=== PATIENT | male | born 1950 | race Caucasian/White ===

== ENCOUNTER 2022-07-08 12:38 | Emergency (ER) | payer MEDICARE ==
[~2022-07-08] VITALS: Ht 188 cm; Wt 111.1 kg
[~2022-07-08 12:38] MED LIST: BISOPROLOL FUMA10 MG PO; GABAPENTIN300 MG PO; METOPROLOL SUCC25 MG PO; WARFARIN SODIUM5 MG PO
[2022-07-08] MEDS ORDERED: HYDROCODON-ACE1 EA11 PO (14:32)
== END 2022-07-08 15:02 | disposition home or self-care (01) ==
LOC: ED 12:38
DX: S82.102A Unspecified fracture of upper end of left tibia, initial encounter for closed fracture (principal); I10 Essential (primary) hypertension; Z88.0 Allergy status to penicillin; Z79.899 Other long term (current) drug therapy; Z79.01 Long term (current) use of anticoagulants; W18.30XA Fall on same level, unspecified, initial encounter
CPT/HCPCS: 73560; 99283-25

== ENCOUNTER 2022-07-10 14:46 | Inpatient (IN) | payer MEDICARE ==
[~2022-07-10] VITALS: Ht 188 cm; Wt 104.8 kg
[~2022-07-10 14:46] MED LIST changes: +HYDROCODON-ACE1 EA11 PO
--- OUTSIDE RECORDS SUMMARY | 2022-07-10 14:48 | XMS ---
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 Luiz VISIT COUNT (12 MO.) 2 [facility] TOTAL 2 NOTE: Visits indicate total known visits. ED/UCC VISIT TRACKING (12 MO.) 07/10/2022 14:46 [facility]KKI Bermudez OR TYPE: Emergency COMPLAINT: - HEART RATE PROBLEM 07/08/2022 12:39 MIKKI Bermudez OR TYPE: Emergency COMPLAINT: - LEFT KNEE INJ INPATIENT VISIT TRACKING (12 MO.) No inpatient visits to display in this time frame [email or web address]
--- NOTE | 2022-07-10 20:45 | NUR ---
PT ARRIVED TO CCU FROM ED VIA STRETCHER. TRANSFERRED TO BED W/ ASSIST OF 3. PT RECEIVING FIRST OF TWO UNITS OF ORDERED BLOOD UPON ARRIVAL TO UNIT. REPORT RECEIVED FROM AMISH SOLER. PT ORIENTED TO ROOM AND CALL LIGHT SYSTEM. CALL LIGHT WITHIN REACH.
--- NOTE | 2022-07-10 21:30 | NUR ---
SECOND UNIT OF BLOOD IS CURRENTLY INFUSING WITHOUT NOTED ADVERSE REACTION. PT IS COMPLIANT WITH ASSESSMENT AND MEDICATION ADMINISTRATION. PT'S SON, MAX IS AT PT'S BEDSIDE ASSISTING WITH ADMISSION INTAKE QUESTIONS. PRN DILAUDID ADMINISTERED FOR 7/10 LLE PAIN. VSS. WILL CONT TO MONITOR.
--- NOTE | 2022-07-10 22:42 | EKG ---
[facility] [address] [facility] [place], [place] [address] Signed Sinus tachycardia Otherwise normal ECG No previous ECGs available Confirmed by SARAH BARCENAS MD ([id number]) on 07/10/2022 10:42:39 PM Electronically Signed By: SARAH BARCENAS MD 07/10/222241 PATIENT NAME: GOPAL RENE MOHIT Electrocardiogram DATE OF : 54 PHYSICIAN: SARAH BARCENAS MD REPORT #: [id number] REPORT IS CONFIDENTIAL AND NOT TO BE RELEASED WITHOUT AUTHORIZATION
--- NOTE | 2022-07-10 23:40 | NUR ---
BLOOD TRANSFUSION COMPLETE. PT UP TO COMMODE AT BEDSIDE WITH ASSISTANCE. TOLERATING IVF ORDERED. VSS. PT VERBALIZES NEEDS APPROPRIATELY. CALL LIGHT WITHIN REACH. WILL CONT TO MONITOR.
--- NOTE | 2022-07-11 01:00 | NUR ---
PT RESTING IN BED WITH HIS EYES CLOSED- TOLERATING IVF ORDERED. VSS. CALL LIGHT WITHIN REACH; PT USES APPROPRIATELY. NO DISTRESS NOTED. WILL CONT TO MONITOR.
--- NOTE | 2022-07-11 03:00 | NUR ---
PT USED CALL LIGHT TO REQUEST ASSISTANCE WITH GOING TO THE BATHROOM. PT DIDN'T WANT TO TRY TO GET UP TO THE COMMODE AND OPTED FOR A BEDPAN. USES URINAL TO VOID. VSS. CALL LIGHT WITHIN REACH. WILL CONT TO MONITOR.
--- NOTE | 2022-07-11 05:12 | NUR ---
PRN DILAUDID ADMINISTERED FOR 8/10 LLE PAIN. PT REPOSITIONED IN BED. TOLERATING IVF ORDERED. CALL LIGHT WITHIN REACH. VSS. NO DISTRESS NOTED. WILL CONTINUE TO MONITOR.
--- NOTE | 2022-07-11 07:00 | NUR ---
PATIENT FINISHED ON BEDPAN. LARGE DARK LIQUID STOOL .
--- NOTE | 2022-07-11 07:30 | NUR ---
REPORT RECIEVED. RESTING IN BED. LEFT LEG IMMOBILIZER IN PLACE. C/O PAIN IN L LEG. LEFT LEG IS WITH SWELLING AND BRUISED.
--- NOTE | 2022-07-11 08:00 | NUR ---
ASSESSMENT DONE. PATIENT IS TO HAVE HAVE EGD THIS AM. HAS BEEN NOP. C/O LEFT LEG DISCOMFORT. LEFT LEG IS SWOLLEN AND BRUISED. IMMOBILIZER IS IN PLACE. DENIES NAUSEA. NO ACTIVE BLEEDING NOTED. DENIES ABD PAIN. IVF INFUSING.
--- NOTE | 2022-07-11 09:03 | NUR ---
PATIENT RESTING IN BED, WOKE TO VOICE. VITALS AND I&OS CHARTED. CALL LIGHT IN EASY REACH
--- NOTE | 2022-07-11 09:59 | NUR ---
TO OR VIA STRETCHER.
--- NOTE | 2022-07-11 10:40 | NUR ---
RETURN TO CCU. IS AWAKE AND ALERT. REPORT RECIEVED FROM CHANGE DIRECTOR.
--- NOTE | 2022-07-11 12:00 | NUR ---
ASSESSMENT DONE. TAKING BOWEL PREP WELL.
--- NOTE | 2022-07-11 13:20 | NUR ---
DILAUDID 1 MG IV GIVEN FOR LLE PAIN. HAS BEEN TAKING BOWEL PREP WELL.
--- NOTE | 2022-07-11 13:36 | NUR ---
SLEEPING AFTER DILAUDID GIVEN. IVF PATENT. NO FUTHER CHANGES.
--- NOTE | 2022-07-11 13:38 | NUR ---
PT TAKEN TO OR FOR SULRGERY. WILL FOLLOW
--- NOTE | 2022-07-11 15:00 | NUR ---
Spoke with pt and he states he lives in [facility] in a house with 1 step. He recently rx his l leg below the knee. States he has had hip replacement on this side also. "R leg shot also". Pt states his sister and son are at his home setting up a hospital bed with a rope in the ceiling to transfer himself. He has a cane, walker, wc, and hospital bed. He plans on dc to home and sister and son will assist him. I asked if he would consider going to a rehap after his surgery on his left leg and he states, "never". He did have an EGD this am and reports they found, "nothing" so he will have a cscope tomorrow. He is unsure what will happen after this. Let him know I will check in with him again to see if he needs assist with placement or any DME. He feels he has everything he needs at home. He denies financial issues.
--- NOTE | 2022-07-11 15:17 | NUR ---
PATIENT ON BEDPAN AT THIS TIME, TOLERATING WELL.
--- NOTE | 2022-07-11 15:30 | NUR ---
ON BED WONG.
--- NOTE | 2022-07-11 16:00 | NUR ---
HAD LARGE MELENA STOOL. ASSESSMENT DONE. DENIES NEED FOR PAIN MEDICATION AT THIS TIME. TAKING CLEAR LIQUIDS. IS COOPERATIVE. NO S/S OF ETOH WITHDRAWAL. IVF PATENT.
--- NOTE | 2022-07-11 17:00 | NUR ---
INCONT OF EXTRA LARGE MELENA STOOL, OVERHEAD LIFT USED TO TRANSFER PATIENT TO COMMODE. TOLERATED WELL. THIS PROCESS OF TRANSFER AND CLEANING TOOK APPROX 45 MIN.
--- NOTE | 2022-07-11 19:00 | NUR ---
INCONT OF MELENA STOOL. ATTENDS CHANGED. NO FUTHER CHANGES. REPORT TO [employer] APPRAISER.
--- NOTE | 2022-07-11 20:00 | NUR ---
PT A/O, RESPIRATIONS COARSE THROUGHOUT, EVEN AND REGULAR. ASSESSMENT COMPLETED. PT RATES PAIN 4/10 TO LLE. DILAUDID ADMINSTERED. CALL LIGHT WITHIN REACH.
--- NOTE | 2022-07-11 22:38 | NUR ---
ROUNDED ON PT. PT APPEARS TO BE SLEEPING COMFORTABLY. IV FLUIDS RUNNING. CALL LIGHT WITHIN REACH.
--- NOTE | 2022-07-12 | NUR ---
PT ASSESSMENT COMPLETED. PT HAD BM AND URINARY INCONTINENCE X1. PT DOES WELL WITH BED MOBILITY. CALL LIGHT WITHIN REACH.
--- NOTE | 2022-07-12 02:19 | NUR ---
ROUNDED ON PT. PT IS A/O, RESPIRATIONS EVEN AND REGULAR. IV FLUIDS RUNNING. DENIES NEEDS/COMPLAINTS ATT. C
--- NOTE | 2022-07-12 03:40 | NUR ---
PT ASSESSMENT COMPLETED. PT HAD X1 VOID AND X1 BM. PRN INHALER ADMINISTERED. RATES PAIN 7/10. PAIN MEDICATION ADMINISTERED. IV FLUIDS RUNNING. CALL LIGHT WITHIN REACH.
--- NOTE | 2022-07-12 05:57 | NUR ---
ROUNDED ON PT. PT IS A/O, RESPIRATIONS EVEN AND REGULAR. IV FLUIDS RUNNING. DENIES NEEDS/COMPLAINTS ATT. CALL LIGHT WITHIN REACH.
--- NOTE | 2022-07-12 07:30 | NUR ---
REPORT RECIEVED. SLEEPING IN BED, IVF PATENT. RESP EQUAL AND NO LABORED.
--- NOTE | 2022-07-12 07:31 | NUR ---
REPORT RECIEVED. PATIENT IS SLEEPING. NO DISTRESS NOTED. IVF PATENT.
--- NOTE | 2022-07-12 08:00 | NUR ---
ASSESSMENT COMPLETE. C/O FEELING RESTLESS AND PAINFUL. WILL GIVE DILAUDID FOR PAIN. LEG IMMOBLIZER INTACT. LEFT LEG REMAINS SWOLLEN AND BRUISED. FOOT WARM. HAS GOOD SENSATION.
--- NOTE | 2022-07-12 09:50 | NUR ---
TO OR VIA STRETCHER. LR ON STRAIGHT TUBING INFUSING.
--- NOTE | 2022-07-12 10:31 | NUR ---
PER AM MEETING POSSIBLE TRANSFER TO MED/SURG TODAY. NO CHANGES IN DISCHARGE PLAN AT THIS TIME.
--- NOTE | 2022-07-12 11:30 | NUR ---
RETURN TO ROOM 127 POST COLONOSCOPY. IS AWAKE AND ALERT. C/O INCREASED PAIN IN LEFT LEG WITH MOVEMENT. VSS. NO BLEEDING NOTED.
--- NOTE | 2022-07-12 12:00 | NUR ---
DR. PRITCHARD HERE TO SEE PATIENT. ORDERS RECIEVED TO TRANSFER TO MED-SURG. MONITOR DC'D. IVF INFUSING AT 75 ML/HR. PATIENT IS TAKING WATER W/O PROBLEMS. LLE REMAINS IN PLACE.
--- NOTE | 2022-07-12 12:40 | NUR ---
OXYCODONE 10 MG PO GIVEN FOR C/O LLE PAIN. SITTING WITH HOB ELEVATED. DENIES SHORTNESS OF BREATH.
--- NOTE | 2022-07-12 13:00 | NUR ---
NO CHANGES. TOOK PO KCL 40 MEQ W/O PROBLEMS. IS TO HAVE CT OF ABD THIS AFTERNOON. FRIEND IS IN ROOM.
--- NOTE | 2022-07-12 15:15 | PATH ---
[facility] [address] [place], [place] [address] Signed SPECIMEN(S): A DUODENAL NODULE BIOPSY SPECIMEN(S): B STOMACH BODY BIOPSY SPECIMEN SOURCE: A. DUODENAL NODULE BIOPSY B. STOMACH BODY BIOPSY CLINICAL HISTORY: Acute GI bleed, blood loss anemia. Post: Duodenitis. FINAL PATHOLOGIC DIAGNOSIS: A. Duodenal nodule biopsy: - Benign duodenal mucosa with focal Refugio's gland hyperplasia. - Slight partial villous effacement, negative for increased epithelial lymphocytes. B. Stomach body biopsy: - Benign gastric-type mucosa with focal slight chronic inflammation. - Negative for evidence of helicobacter organisms on routine HE stained sections. JVR:[facility]:C2NR MICROSCOPIC EXAMINATION: Histologic sections of all submitted blocks are examined by light microscopy. These findings, together with the gross examination, support the pathologic diagnosis. GROSS DESCRIPTION: Two specimens are received in two containers, labeled "BQ." A. The specimen, labeled "BQ, duodenal nodule biopsy," is received in formalin and consists of one montgomery soft tissue fragment that measures 0.3 cm in greatest dimension. The specimen is entirely submitted in cassette (A1). B. The specimen, labeled "BQ, stomach body biopsies," is received in formalin and consists of four montgomery soft tissue fragments that measure 0.1-0.3 cm in greatest dimension. The specimen is entirely submitted in cassette (B1). VB (under the direct supervision of a pathologist) The Gross Description was prepared using a voice recognition system. The report was reviewed for accuracy; however, sound-alike word errors, addition and/or deletions may occur. If there is any question about this report, please contact Client Services. PATIENT NAME: GOPAL RENE PATHOLOGY DATE OF : 54 REPORT #: [id number] PHYSICIAN: JOSSIE COLUNGA PCP: LUIS CARLOS PRITCHARD MD REPORT IS CONFIDENTIAL AND NOT TO BE RELEASED WITHOUT AUTHORIZATION [facility] [address] [facility] [place], [place] [address] Signed PERFORMING LABORATORY: The technical component was performed by [email or web address], [address] [place] [id number] (CLIA# [id number]). Professional interpretation was performed by [facility] - [address] [address] (CLIA#: [id number]). Diagnostician: Peyman Gaffney MD Pathologist Electronically Signed 07/12/2022 Copies: ~ PATIENT NAME: GOPAL RENE PATHOLOGY DATE OF : 54 REPORT #: [id number] PHYSICIAN: JOSSIE COLUNGA PCP: LUIS CARLOS PRITCHARD MD REPORT IS CONFIDENTIAL AND NOT TO BE RELEASED WITHOUT AUTHORIZATION
--- NOTE | 2022-07-12 15:35 | NUR ---
TAKING ORAL CONTRAST. WILL HAVE CT OF ABD TODAY AT 1600. DENIES NAUSEA OR PAIN.
--- NOTE | 2022-07-12 16:25 | NUR ---
PT TRANSFERED TO ROOM [address] VSS. PT DENIES NEEDS AT THIS TIME. ORIENTED TO CALL LIGHT, WITHIN REACH.
[2022-07-12] MEDS ORDERED: NORVASC5 MG PO (17:20)
[2022-07-12] MEDS ORDERED: LIPITOR20 MG PO (17:21)
[2022-07-12] MEDS ORDERED: OXYCODONE HCL5 MG PO (17:22)
--- NOTE | 2022-07-12 18:23 | NUR ---
MED REC COMPLETE
--- NOTE | 2022-07-12 19:05 | NUR ---
RECEIVED REPORT FROM LEILANI WELLINGTON. PT RESTING IN BED W/EYES CLOSED, RESPIRATIONS ARE EVEN AND UNLABORED, NO SIGNS OF DISTRESS. IV FLUIDS INFUSING DIRECTED. CALL LIGHT WITHIN REACH.
--- NOTE | 2022-07-12 22:31 | NUR ---
IN PT ROOM FOR ASSESSMENT, VS, I/O'S. PT REQUESTED TO SIT AT EDGE OF BED. ASSISTED PT TO SITTING AT EDGE OF BED, TOLERATED WELL, SAFETY MAINTAINED, PT REPORTS NO DIZZINESS OR INCREASED PAIN AT THIS TIME. BRACE CURRENTLY ON LEFT LEG D/T TIBIAL FRACTURE, SWELLING PRESENT FROM KNEE DOWN WITH BRUSING AROUND KNEE. PULSES THROUGHOUT, WEAKER IN PEDAL. SKIN IS PINK/WARM/DRY, PT IS ABLE TO MOVE SELF IN BED USING TRAPEZE BAR ABOVE HEAD, NO SIGNS OF SKIN BREAKDOWN AT THIS TIME. LUNGS ARE TIGHT THROUGHOUT WITH WHEEZES HEARD ON RUL & RLL, OCCASIONAL, NONPRODUCTIVE COUGH. PRN OXY GIVEN FOR 5/10 PAIN IN LFT LEG AND LOWER BACK. PT NOW RESTING BACK IN BED, CALL LIGHT WITHIN REACH, NO FURTHER NEEDS AT THIS TIME. IV FLUIDS RUNNING DIRECTED.
--- NOTE | 2022-07-12 23:30 | NUR ---
PT RESTING W/EYES CLOSED. RESPIRATIONS ARE EVEN AND UNLABORED, NO SIGNS OF DISTRESS. CALL LIGHT WITHIN REACH.
--- NOTE | 2022-07-13 01:10 | NUR ---
PT RESTING W/EYES CLOSED. RESPIRATIONS ARE EVEN AND UNLABORED, NO SIGNS OF DISTRESS. CALL LIGHT WITHIN REACH. IV FLUIDS INFUSING DIRECTED.
--- NOTE | 2022-07-13 02:15 | NUR ---
IN PT ROOM FOR VS, I/O'S, AND ASSESSMENT. PT RESTING W/EYES CLOSED BUT AWAKENS TO VOICE. ORIENTED TO ALL BUT DATE. NO ACUTE CHANGES FROM PREVIOUS ASSESSMENT. LFT LEG IN IMMOBILIZER, SWOLLEN W/2+ EDEMA AND BRUISING AROUND KNEE. PT STATES NO PAIN AT THIS TIME, STATES DOES NOT REQUIRE PRN PAIN MEDS AT THIS TIME. PT STATES NO NAUSEA, DIZZINESS, N/T, OR SOB AT THIS TIME. CALL LIGHT WITHIN REACH, NO FURTHER NEEDS AT THIS TIME. VSS.
--- NOTE | 2022-07-13 03:05 | NUR ---
PT RESTING W/EYES CLOSED. RESPIRATIONS ARE EVEN AND UNLABORED, NO SIGNS OF DISTRESS. CALL LIGHT WITHIN REACH.
--- NOTE | 2022-07-13 05:50 | NUR ---
IN PT ROOM FOR NEUROLOGY TECHNOLOGIST. PT ALERT AND WATCHING TV AT THIS TIME. PT STATES HIS STOMACH HURTS, NO NAUSEA AT THIS TIME. SCHEDULED PROTONIX GIVEN AND PRN OXY (SEE EMAR). PT STOMACH IS MODERATELY DISTENDED, BOWEL TONES ACTIVE X4, AND INCREASED IN FIRMNESS. CALL LIGHT WITHIN REACH, NO FURTHER NEEDS AT THIS TIME.
--- NOTE | 2022-07-13 08:12 | NUR ---
MORNING ASSESSMENT COMPLETE. PT SITTING HIGH FOWLERS IN BED WATCHING TV. PT STATES PAIN IS TOLERABLE AT THIS TIME. ABD MODERATELY DISTENDED, FIRM. PT DOES NOT COMPLAIN OF NAUSEA AT THIS TIME. STATES HE FEELS ABD PRESSURE AND BLOATING. HYPOACTIVE BOWEL TONES THROUGHOUT. PT DENIES PASSING GAS IN [address] CHILEL, NO NEW ORDERS. DISCUSSED PLAN OF CARE WITH PATIENT, INFORMED OF PT/OT EVALUATION. PT VERBALIZED UNDERSTANDING. DENIES FURTHER NEEDS AT THIS TIME. CALL LIGHT IN REACH.
--- NOTE | 2022-07-13 09:19 | NUR ---
pt in bed. vitals and is and os complete. pt still req to sit on bed haddad. no further needs. call light within reach.
--- NOTE | 2022-07-13 13:34 | NUR ---
PT REPORTS HE WAS ABLE TO PASS SOME GAS AND STOOL AND IS NEEDING A LINEN CHANGE. PT'S LINENS CHANGED WITH A DEPENDS PLACED. WARM BLANKETS PROVIDED. PT SITTING UP IN BED WITH CALL LIGHT IN HAND. PT PASSED APPROXIMATELY 50 ML OF GELANTINOUS STOOL.
--- NOTE | 2022-07-13 19:43 | NUR ---
REPORT RECEIVED FROM DAY SHIFT RN. PT LYING IN BED ALERT AND ORIENTED. DENIES NEEDS. WHITE BOARD UPDATED. CALL LIGHT IN REACH.
--- NOTE | 2022-07-13 21:21 | NUR ---
EVENING ASSESSMENT COMPLETE. SCHEDULED MEDS ADMIN PER EMAR. PT REPORTS LLE/ABD PAIN 12/05. PRN FOR PAIN ADMIN PER EMAR. LLE WITH IMMOBILIZER IN PLACE. ELEVATED ON PILLOW. CMS INTACT. EDEMA AND BRUISING NOTED. ABD FIRM AND DISTENDED. BOWEL TONES ACITVE. PT REPORTS FLATUS. DENIES NAUSEA. PT DENIES QUESTIONS OR CONCERNS. CALL LIGHT IN REACH.
--- NOTE | 2022-07-14 00:10 | NUR ---
PT RESTING IN BED WITH EYES CLOSED. RESPIRATIONS EVEN. CALL LIGHT IN REACH.
--- NOTE | 2022-07-14 01:33 | NUR ---
CALL LIGHT ANSWERED. PT REPORTS LLE PAIN 01/05. PRN FOR PAIN ADMIN PER EMAR. SCHEDULED MEDS ADMIN. ASSITED TO REPOSITION. LLE ELEVATED ON PILLOWS. NO FURTHER NEEDS. CALL LIGHT IN REACH.
--- NOTE | 2022-07-14 03:00 | NUR ---
IN TO CHANGE THERMOSTAT FOR PT
--- NOTE | 2022-07-14 05:08 | NUR ---
PT IN BED. VITALS AND IS AND OS COMPLETE. NO FURTHER NEEDS. CALL LIGHT WITHIN REACH
--- NOTE | 2022-07-14 06:26 | NUR ---
SCHEDULED MEDS ADMIN. PT REPORTS LLE PAIN 5/10. PRN FOR PAIN ADMIN PER EMAR. ASSISTED PT TO REPOSITION IN BED. LLE ELEVATED ON TWO PILLOWS. NO FURTHER NEEDS.
--- NOTE | 2022-07-14 08:15 | NUR ---
PT CALL LIGHT ANSWERED. PT REQ WATER. WATER GIVEN TO PT. PT URINAL EMPTIED. SCDS PUT ON AGAIN. NO FURTHER NEEDS. CALL LIGHT WITHIN REACH
--- NOTE | 2022-07-14 08:50 | NUR ---
MORNING ASSESSMENT COMPLETE. PT SITTING UPRIGHT IN BED EATING BREAKFAST. PT REPORTS SMALL AMOUNT OF EMESIS APPROX 15 MINUTES PRIOR, EMESIS ON GOWN YELLOW/GREEN IN COLOR. PT DENIES NAUSEA AT THIS TIME, ABLE TO COMPLETE 90% OF MEAL. GOWN CHANGED. ABD DISTENDED AND FIRM, ACTIVE BOWEL TONES HEARD THROUGOUT. PT REPORTS PASSING GAS DURING THE NIGHT. PT STATES PAIN IT 3/10 IN LEFT LEG, TOLERABLE AT THIS TIME, 2+ PITTING EDEMA NOTED TO LLE, CMS INTACT. CALL LIGHT IN REACH. DENIES FURTHER NEEDS AT THIS TIME.
--- NOTE | 2022-07-14 10:27 | NUR ---
IN PT ROOM. PT IN CHAIR. SCD MACHINE IS GOING OFF. SCD MACHINE FIXED. LINEN CHANGED. NO FURTHER NEEDS. URINAL PUT IN REACH. CALL LIGHT WITHIN REACH
--- NOTE | 2022-07-14 11:39 | NUR ---
SISTER TOOK ALL THE PATIENTS BELONGINGS HOME WITH HER.
--- NOTE | 2022-07-14 11:45 | NUR ---
PT ASSISTED FROM CHAIR TO BED, PIVOT TRANSFER WITH 1 PERSON ASSIST. PT TOLERATED WELL. DENIES NEEDS AT THIS TIME.
--- NOTE | 2022-07-14 13:28 | NUR ---
pt in bed. vitals and is and os complete. pt had not had any urine output for the last 4 hours. i asked pt to try to use the urinal. pt tried. urine output was deficent so rn was notified. no further needs call light within reach
--- NOTE | 2022-07-14 14:10 | NUR ---
INFORMED BY DIRECTOR PERSONAL PT OUTPUT SINCE 1000 WAS 10ML. BLADDER SCAN VOLUME 490. PT URINATED 150 DARK YELLOW URINE. POST VOID RESIDUAL 397. SPOKE WITH DR PRITCHARD, NO NEW ORDERS RECEIVED. WILL MONITOR INTAKE AND URINE OUTPUT.
--- NOTE | 2022-07-14 17:36 | NUR ---
PT LYING AWAKE IN BED, C/O 5/10 LEG AND ABD PAIN. GIVEN PRN OXYCODONE, SEE EMAR. DENIES FURTHER NEEDS AT THIS TIME. CALL LIGHT IN REACH.
--- NOTE | 2022-07-14 19:41 | NUR ---
REPORT RECEIVED FROM DAY SHIFT RN. PT LYING IN BED ALERT AND ORIENTED. REPORTS LLE/ABD PAIN 01/05. PRN FOR PAIN ADMIN WITH SIPS OF WATER. PT DENIES NAUSEA. NO FURTHER NEEDS AT THIS TIME. CALL LIGHT IN REACH. WHITE BOARD UPDATED.
--- NOTE | 2022-07-14 20:30 | NUR ---
NOTIFIED BY MANAGER LIFE INSURANCE PT HAD APPROX [address] PRITCHARD ON THE FLOOR AND PROVIDED UPDATES. NEW ORDERS RECEIVED.
--- NOTE | 2022-07-14 20:58 | NUR ---
IV STARTED ON LFA, 1 ATTEMPT 20G FLUSHED WELL. NO OTHER NEEDS. CALL LIGHT IN REACH.
--- NOTE | 2022-07-14 21:45 | NUR ---
16F NGT PLACED PER ORDER IN RIGHT NARE WITH IMMEDIATE RETURN OF 850 ML BROWN DRAINAGE. SECUREMENT DEVICE IN PLACE. EDUCATION PROVIDED, PT RECEPTIVE. DAVID WELL. PRN FOR LLE PAIN ADMIN PER EMAR. BRACE TO LLE IN PLACE. ELEVATED ON 2 PILLOWS. 2+ EDEMA AND BRUISING NOTED. CMS INTACT. IVF INFUSING PER ORDER. PT NPO. ORAL SWABS PROVIDED. NO FURTHER NEEDS. CALL LIGHT IN REACH.
--- NOTE | 2022-07-15 01:18 | NUR ---
PT RESTING IN BED WITH EYES CLOSED. HOB ELEVATED 30 DEGREES. NGT WITH BROWN DRAINAGE. LLE ELEVATED ON PILLOWS.
--- NOTE | 2022-07-15 02:45 | NUR ---
PT ABLE TO VOID APPROX 75 ML. UP TO SIDE OF BED TO ATTEMPT TO VOID MORE. PT UNABLE, REPORTS HE HAS NO URGE TO VOID. BACK TO BED. BLADDER SCANNED FOR [address] PRITCHARD NOTIFIED. NEW TELEPHONE ORDERS RECEIVED VERIFIED WITH READ BACK METHOD.
--- NOTE | 2022-07-15 04:28 | NUR ---
ORDERS TO PLACE CORNEJO CATH RECEIVED. PT WITH HX OF HYPOSPADIAS. THIS THIRD RAIL INSTALLER AND PHARMACY SERVICE ASSOCIATE IN TO ASSESS FOR CORNEJO PLACEMENT. MD NOTIFIED THIS THIRD RAIL INSTALLER UNABLE TO PLACE CORNEJO DUE TO ANATOMY. DR. PRITCHARD TO FLOOR TO PLACE 12F CORNEJO CATH FOLLOWING STERILE PROCEDURE WITH RETURN OF 700 ML CONCENTRATED URINE. BALOON FILLED WITH 10 ML. PT DAVID WELL.
--- NOTE | 2022-07-15 07:11 | NUR ---
REPORT RECEIVED FROM ARIEL WELLINGTON, ALL QUESTIONS ANSWERED.
--- NOTE | 2022-07-15 08:34 | NUR ---
MORNING ASSESSMENT COMPLETE. PT LYING IN BED WITH EYES CLOSED, AWAKENS EASILY. NG TUBE IN PLACE TO LIWS, YELLOW/ORANGE THICK DRAINAGE. CORNEJO CATHETER DRAINING CLEAR YELLOW URINE. PT LEFT LEG ELEVATED ON [address] BRUISING AND 2+ PITTING EDEMA NOTED TO LEFT LEG. PT STATES PAIN IS TOLERABLE AT 3/10 AT THIS TIME. PT INITALLY CONFUSED, THOUGH AFTER A FEW MINUTES ABLE TO ANSWER ORIENTATION QUESTIONS CORRECTLY. PT STATES HE FEELS CONFUSED AT TIMES. IV FLUIDS RUNNING AT 175. SCD IN PLACE TO RLE. PT DENIES FURTHER NEEDS AT THIS TIME. CALL LIGHT IN REACH.
--- NOTE | 2022-07-15 10:20 | NUR ---
PT RESTING WITH EYES CLOSED, RESPIRATIONS EVEN AND UNLABORED. CALL LIGHT IN REACH.
--- NOTE | 2022-07-15 11:06 | NUR ---
PT UP TO CHAIR WITH PT. PT STATES PAIN REMAINS TOLERABLE AT THIS TIME. NG TO LIWS CONTINUES TO DRAIN YELLOW/ORANGE FLUID. CORNEJO DRAINING CLEAR YELLOW URINE. PT ALERT AND OREINTED. DENIES FURTHER NEEDS AT THIS TIME. CALL LIGHT IN REACH.
--- NOTE | 2022-07-15 14:12 | NUR ---
IN PT ROOM. VITALS COMPLETE. RN IN ROOM AND WILL COMPLETE IS AND OS. NO FURTHER NEEDS. CALL LIGHT WITHIN REACH
--- NOTE | 2022-07-15 14:15 | NUR ---
SPOKE WITH DR PRITCHARD REGARDING LOW URINE OUTPUT, 100MLS SINCE 1000AM. ORDER FOR 1L LR BOLUS PLACED.
--- NOTE | 2022-07-15 15:24 | NUR ---
FLUID BOLUS COMPLETE, MAINTENANCE FLUIDS RUNNING. NG TO LIWS CONTINUES WITH YELLOW/BROWN FLUID. CORNEJO DRAINING DARK YELLOW URINE. PT DENIES NEEDS AT THIS TIME, STATES PAIN IS TOLERABLE. CALL LIGHT IN REACH. BED ALARM ON.
--- NOTE | 2022-07-15 15:40 | NUR ---
NG ADVANCED 5CM PER ABD XRAY. AWARE. LIWS DRAINGING YELLOW/BROWN CONTENTS. PT TOLERATED WELL. NG MARKED AT NARE.
--- NOTE | 2022-07-15 16:52 | NUR ---
PT SITTING UP AWAKE IN BED WATCHING TV. STATES PAIN IS TOLERABLE AT THIS TIME. CALL LIGHT IN REACH. BED ALARM ON.
--- NOTE | 2022-07-15 19:22 | NUR ---
REPORT RECEIVED FROM DAY SHIFT RN. PT LYING IN BED RESTING WITH EYES CLOSED. RESPIRATIONS EVEN. CALL LIGHT IN REACH. WHITE BOARD UPDATED.
--- NOTE | 2022-07-15 21:17 | NUR ---
IN ROOM FOR INCOME TAX ADMINISTRATOR. PT AWAKE IN BED. FOUND TO BE DISORIENTED TO ALL AND UNABLE TO FOLLOW COMMANDS. VS WNL. BLOOD SUGAR 92. NO OBVIOUS SIGNS OR SYMPTOMS OF ETOH WITHDRAWAL. BEFAST NEGATIVE. DR. PRITCHARD NOTIFIED OF CHANGE IN PT CONDITION AND ON FLOOR TO ASSESS PT.
--- NOTE | 2022-07-15 22:11 | NUR ---
REPORT GIVEN TO CCU RN. PT TRANSFERRED VIA BED TO ROOM 127 WITH ALL PERSONAL BELONGINGS. PT ALERT AND ORIENTED X 3. REPORTS PASSING FLATUS DURING TX.
--- NOTE | 2022-07-15 22:15 | NUR ---
PT ARRIVES TO CCU VIA BED BY SKATE MAKER. PT ALERT AND OREINTED, APPEARS SOMEWHAT FORGETFUL RELATED TO DISEASE PROCESS AND INTERVENTIONS. NG TUBE CONNECTED TO LIS, GREEN BILE DRAINING. PT STATES HE PASSED GAS FEW MINUTES AGO, DENIES NAUSEA. FURTHER EDUCATION DONE ON WHY HE CANT EAT. CMS INTACT ON LEFT LOWER LEG, IN BRACE, PT STATES COMFORTABLE. REPOSISTIONS SELF USING TRAPEZE. IV BOLUS STARTED ON MS REMAINS INFUSING. PT ORIENTED TO ROOM AND CALL LIGHT, BED ALARM ON.
--- NOTE | 2022-07-15 23:33 | NUR ---
PT SITTING UP IN BED WATCHING TV - HARSH WET COUGH NOTED OCCASIONALLY. BED SIDE TABLE IN REACH.
--- NOTE | 2022-07-16 | NUR ---
RN IN ROOM TO FIND PT ATTEMPTING TO TAKE GOWN OFF - ABLE TO ANSWER ALL ORIENTATION QUESTIONS CLEARLY BUT EXPERIENCING EXPRESIVE APHASIA WHEN ASKED "WHAT IS WRONG". BEFAST/MINI NEURO EXAM NEGATIVE. ENGINE REPAIRER PRODUCTION IN ROOM TO ALSO ASSESS - PT CLEARS QUICKLY. PT CONFUSED ABOUT REASON FOR HOSPITALIZATION WHICH IN TURN IS LEADING TO ANXIETY. PT DENIES NEEDS HOWEVER. WILL CONTINUE TO MONITOR.
--- NOTE | 2022-07-16 00:31 | NUR ---
PRN HOME INHALER PROVIDED FOR PT FOR COMPLAINTS OF SOB. SPO2 94% ON ROOM AIR. LUNG SOUNDS UNREMARKABLE.
--- NOTE | 2022-07-16 01:30 | NUR ---
PT RESTING IN BED WITH HOB ELEVATED - RR EVEN AND UNLABORED. STILL OCCASIONAL COUGH THAT PRODUCES A MOAN.
--- NOTE | 2022-07-16 02:11 | NUR ---
PT ASSISTED WITH REPOSISTIONING TO RIGHT SIDE PER PT REQUEST.
--- NOTE | 2022-07-16 04:00 | NUR ---
ASSESSMENT COMPLETE - PT WAKES EASILY WITH NAME AND IS ORIENTED X3. DENIES PAIN, CONTINUAL COUGH HOUWEVER LUNG SOUNDS ARE CLEAR/DIM. LEFT LEG REMAINS IN IMMOBILIZER AND ELEVATED ON PILLOWS, CMS INTACT. CORNEJO DRAINING SMALL AMOUNTS OF CONC URINE. ABD FIRM WITH HYPOACTIVE BOWEL TONES. PT ENCOURAGED SELF REPOSISTIONING USING TRAPAEZE. IVF REMAIN AT RATE OF 200ML/HR. NG TO LIS, MINIMAL GREEN DRAINAGE. CALL LIGHT AT SIDE.
--- NOTE | 2022-07-16 05:05 | NUR ---
PT ASSISTED UP TO CHAIR PIVOT TRANSFER NON WEIGHT BEARING ON LEFT LEG. PT OREINTED AND APPEARS TO BE CLEARING MENTALLY. NG OUTPUT 1200ML OF YELLOW/GREEN BILE. URINE OUT PUT REMAINS LOW - 25ML/HR. PT DENIES COMPLAINTS - CONTINUED EDUCATION ON DISEASE PROCESS PROVIDED.
--- NOTE | 2022-07-16 07:30 | NUR ---
REPORT RECIEVED. PATIENT IS SITTNG IN CHAIR, NGT PATENT, CORNEJO CATH PATENT, IVF INFUSING. RESTING.
--- NOTE | 2022-07-16 08:00 | NUR ---
PATIENT AWAKE IN RECLINER. VITALS AND I&OS CHARTED. NG IN PLACE AND WORKING PROPERLY. CORNEJO EMPTIED AND CHARTED. CALL LIGHT AND PERSONAL ITEMS IN EASY REACH. PATIENT HAS NO OTHER NEEDS AT THIS TIME.
--- NOTE | 2022-07-16 09:30 | NUR ---
PASSING LIQUID STOOL. BACK TO BED WITH ASSIST OF TWO STAFF. LINENS CHANGED. ATTENDS PLACED. LEFT LEG IMMOBOLIZER IN PALCE. LEFT LEG REMAINS SWOLLEN AND BRUISED. C/O INCREASED LEG PAIN WITH MOVEMENT. DENIES NAUSEA. MINIMAL U/O. WILL CONTINUE TO MONITOR U/O.
--- NOTE | 2022-07-16 10:30 | NUR ---
PHOS RIDER RAJANI, WILL ALSO RECIEVE MAG RIDER.
--- NOTE | 2022-07-16 11:00 | NUR ---
OOB TO CHAIR. PATIENT IS COOPERATIVE. IS ALERT AND ORIENTED. ENC TO USE I.S.
--- NOTE | 2022-07-16 12:00 | NUR ---
ASSESSMENT UNCHANGED. REMAINS IN CHAIR. O2 AT [address]
--- NOTE | 2022-07-16 13:15 | NUR ---
SEVERAL FAMILY MEMBERS ARE IN ROOM. EXPLAINED TO FAMILY PATIENTS ILLNESS, AND CURRENT MEDICAL PLAN.
--- NOTE | 2022-07-16 13:40 | NUR ---
BACK TO BED WITH TOTAL ASSIST. INCONT OF LIQUID STOOL. INCREASE PAIN IN LEG WITH MOVEMENT. NO PAIN MEDICATION GIVEN.
--- NOTE | 2022-07-16 14:17 | NUR ---
RESTING IN BED. NGT PATENT.
--- NOTE | 2022-07-16 19:30 | NUR ---
REPORT RECEIVED FROM DAY RN - PT RESTING IN BED WITH HOB ELEVATED WATCHING TV. CALL LIGHT AT SIDE.
--- NOTE | 2022-07-16 20:34 | NUR ---
ASSESSMENT COMPLETE - PT AWAKE IN BED BUT EXPRESSES HES READY FOR SLEEP. NG TUBE ON LIS, DRAINING YELLOW/GREEN COPIOUS AMOUNT. PT PROVIDED SMALL AMOUNT OF ICE CHIPS FOR COMFORT. DENIES NEED FOR PAIN MEDICATION. ORIENTED AND CARRYING CONVERSATION APPROPIRATLY. MOIST COUGH REMAINS - LUNGS CLEAR. CALL LIGHT IN REACH.
--- NOTE | 2022-07-16 21:20 | NUR ---
PT RESTING IN BED WITH HOB ELEVATED AT 30 DEGREES, EYES CLOSED. RR EVEN AND UNLABORED. CALL LIGHT AT SIDE, HR 80'S RESTING.
--- NOTE | 2022-07-16 23:05 | NUR ---
LARGE MUCUS/GREEN LIQUID BM PRODUCED IN ATTENDS, CHANGED AND CORNEJO CARE DONE. PT ENCOURAGED TO CALL AND USE COMMODE FOR INFECTION PURPOSES. NG CANISTER EMPTIED FOR 1000ML OUT. CORNEJO 90ML OUT. PT DENIES FURTHER NEEDS. CALL LIGHT AT SIDE.
--- NOTE | 2022-07-17 00:53 | NUR ---
Pt resting in bed with eyes closed, hob elevated at 30degrees. RR even and unlabored, call light in reach.
--- NOTE | 2022-07-17 01:40 | NUR ---
PT REMAINS ASLEEP IN BED, RR EVEN AND UNLABORED. ASSESSMENT DEFERED AT THIS TIME TO ALLOW REST. CALL LIGHT AT SIDE.
--- NOTE | 2022-07-17 03:05 | NUR ---
PT USES CALL LIGHT TO REPORT HE HAD BM IN ATTENDS. PT CLEANED AND NEW ATTENDS PLACED. STOOL CONTINUES TO BE MUCOUS AND LOOSE. SKIN BARRIER CREAM APPLIED TO BOTTOM TO PREVENT BREAKDOWN. PT ASSISTS WITH ROLLING USING TRAPEZE. LEFT LEG ELEVATED ON PILLOWS. NG TUBE CONTINUES TO DRAIN LARGE AMOUNT OF YELLOW/GREEN BILE. NG NOSE ADHESIVE REPLACED. CALL LIGHT IN REACH.
--- NOTE | 2022-07-17 04:53 | NUR ---
PT RESTING IN BED WITH EYES CLOSED, RR EVEN AND UNLABORED. VS ON MONITOR WNL. CALL LIGHT AT SIDE.
--- NOTE | 2022-07-17 05:12 | NUR ---
PT USES CALL LIGHT TO REQUEST PAIN MEDICATION FOR 6/10 PAIN IN BACK AND LEG. PRN MORPHINE ADMINISTERED AND REPOSISTIONED. LUNGS REMAIN CLEAR BUT DIM, DEEP BREATHING INITIATES COUGH WHICH PT AVOIDS, EDUCATION PROVIDED ON THIS. PT DENIES FURTHER NEEDS, CALL LIGHT IN REACH.
--- NOTE | 2022-07-17 06:25 | NUR ---
pt resting in bed with eyes closed, wakes easily with sound. ng tube canister emptied, very foul smell noted - total of 2000ml out this shift.
--- NOTE | 2022-07-17 09:26 | NUR ---
Spoke with Jesús. States he cont. to plan to dc to home when he is cleared medically. States he has stopped drinking and smoking with this admission. I accepted a [employer] card and will consider calling them. Does not want me to call at this time.
--- NOTE | 2022-07-17 10:20 | NUR ---
OOB TO COMMODE TO EXPELL 750 ML OF LIQUID STOOL. TWO STAFF NEEDED FOR TRANSFER. STAYED ON COMMODE FOR APPROX 20 MIN. WHILE ON COMMODE, AM CARES GIVEN. TOELRATED WELL. DENIES SHORTNESS OF BREATH. DENIES PAIN.
--- NOTE | 2022-07-17 11:36 | NUR ---
ASSESSMENT DONE. SITTING UP IN BED WATCHING TV. NGT TO LIS. CORNEJO CATH PATENT. IVF INFUSING AT 200 ML/HR. LEFT LEG IMMOBILIZER ON. CMS TO LLE INTACT. DENIES NEED FOR PAIN MEDICATION.
--- NOTE | 2022-07-17 13:30 | NUR ---
FAMILY MEMBERS ARE IN ROOM. PATIENT IS HAVING A MEETING ON PHONE. TOLERATING CONVERSATION WELL.
--- NOTE | 2022-07-17 14:53 | NUR ---
PT SLEEPING, AMISH PATEL REQUESTED I NOT DISTURB PT AT THIS TIME. WILL FOLLOW
--- NOTE | 2022-07-17 15:00 | NUR ---
IVF HUNG ORDERED.
--- NOTE | 2022-07-17 15:09 | PATH ---
[facility] [address] [facility] [place], [place] [address] Signed SPECIMEN(S): A CECUM POLYP SPECIMEN(S): B ASCENDING/RIGHT COLON POLYP SPECIMEN(S): C TRANSVERSE COLON POLYP SPECIMEN(S): D CECUM BIOPSY MASS SPECIMEN(S): E DESCENDING/LEFT COLON POLYP AT 95 CM SPECIMEN(S): F SIGMOID COLON POLYP AT 70 CM SPECIMEN(S): G SIGMOID COLON POLYP AT 60 CM SPECIMEN(S): H COLON POLYP AT 30 CM SPECIMEN(S): I COLON POLYP AT 20 CM SPECIMEN(S): J COLON POLYP AT 25 CM SPECIMEN(S): K RECTAL POLYP SPECIMEN SOURCE: A. CECUM POLYP B. ASCENDING/RIGHT COLON POLYP C. TRANSVERSE COLON POLYP D. CECUM BIOPSY MASS E. DESCENDING/LEFT COLON POLYP AT 95 CM F. SIGMOID COLON POLYP AT 70 CM G. SIGMOID COLON POLYP AT 60 CM H. COLON POLYP AT 30 CM I. COLON POLYP AT 20 CM J. COLON POLYP AT 25 CM K. RECTAL POLYP CLINICAL HISTORY: GI bleed. Postop diagnosis: Multiple polyps FINAL PATHOLOGIC DIAGNOSIS: A. Cecum polyp: - Tubular adenoma (four fragments). B. Ascending / right colon polyp: - Tubular adenoma. C. Transverse colon polyp: - Tubular adenoma (one fragment). D. Cecum biopsy mass: - Polypoid fragments of colonic mucosa with features focally suggestive of serrated polyp / adenoma. - Negative for evidence of malignancy on these sections. E. Descending / left colon polyp at 95 cm: - Tubular adenoma (multiple fragments). PATIENT NAME: GOPAL RENE PATHOLOGY DATE OF : 54 REPORT #: [id number] PHYSICIAN: JOSSIE COLUNGA PCP: LUIS CARLOS PRITCHARD MD REPORT IS CONFIDENTIAL AND NOT TO BE RELEASED WITHOUT AUTHORIZATION [facility] [address] [place], [place] [address] Signed F. Sigmoid colon polyp at 70 cm: - Tubular adenoma (five fragments). G. Sigmoid colon polyp at 60 cm: - Tubular adenoma (three fragments). H. Colon polyp at 30 cm: - Tubular adenoma. I. Colon polyp at 20 cm: - Tubular adenoma with focal high grade dysplasia. - Negative for unequivocal invasive carcinoma. - High grade dysplasia appears free of the polyp stalk margin on these sections. J. Colon polyp at 25 cm: - Tubular adenoma. K. Rectal polyp: - Tubular adenoma (multiple fragments). JVR:[id number] MICROSCOPIC EXAMINATION: Histologic sections of all submitted blocks are examined by light microscopy. These findings, together with the gross examination, support the pathologic diagnosis. GROSS DESCRIPTION: A. The specimen, labeled and designated "GermanclaudiaiberHenrique," and designated on the requisition "cecum polyp," is received in formalin and consists of five montgomery soft tissue fragments that measure in 0.2 to 0.4 greatest dimension. The specimens are entirely submitted in (A1). B. The specimen, labeled and designated "Henrique Rene," and designated on the requisition "ascending/right colon polyp," is received in formalin and consists of one montgomery soft tissue fragment that is 0.7 cm in greatest dimension. The specimen is inked, bisected, and entirely submitted in (B1). C. The specimen, labeled and designated "MaurisioiberHenrique," and designated on the requisition "transverse colon polyp," is received in formalin and consists of two montgomery soft tissue fragments that measure 0.3 and 0.5 cm in greatest dimension. The specimen is entirely submitted in (C1). D. The specimen, labeled and designated "Henrique Rene," and designated on the requisition "cecum biopsy mass," is received in formalin and consists of four montgomery soft tissue fragments that measure 0.2 to 0.4 cm in greatest dimension. The specimen is entirely submitted in PATIENT NAME: GOPAL RENE PATHOLOGY DATE OF : 54 REPORT #: [id number] PHYSICIAN: JOSSIE COLUNGA PCP: LUIS CARLOS PRITCHARD MD REPORT IS CONFIDENTIAL AND NOT TO BE RELEASED WITHOUT AUTHORIZATION [facility] [address], [place] [address] Signed (D1). E. The specimen, labeled and designated "Lemuel Henrique," and designated on the requisition "descending/left colon polyp at 95 cm," is received in formalin and consists of four montgomery soft tissue fragments that measure 0.2 to 0.4 cm in greatest dimension. The specimen is entirely submitted in (E1). F. The specimen, labeled and designated "Stefanjordanlizzy Henrique," and designated on the requisition "sigmoid colon polyp at 70 cm," is received in formalin and consists of two montgomery soft tissue fragments that measure 0.6 and 0.6 cm in greatest dimension. Each tissue fragment is arbitrarily inked and bisected. The specimen is entirely submitted in (F1). G. The specimen, labeled and designated "Quittschreiber, B," and designated on the requisition "sigmoid colon polyp at 60 cm," is received in formalin and consists of three montgomery soft tissue fragments that measure 0.3 to 0.5 cm in greatest dimension. The specimen is entirely submitted in (G1). H. The specimen, labeled and designated "Quittschreiber, B," and designated on the requisition "colon polyp at 30 cm," is received in formalin and consists of one montgomery soft tissue fragment that is 1.0 x 0.9 x 0.9 cm. The specimen is inked, sectioned, and entirely submitted in (H1). I. The specimen, labeled and designated "Quittschreiber, B," and designated on the requisition "colon polyp at 20 cm," is received in formalin and consists of one montgomery soft tissue fragment that is 1.4 cm in greatest dimension. The specimen is inked, sectioned, and entirely submitted in (I1). J. The specimen, labeled and designated "Quittschreiber, B," and designated on the requisition "colon polyp at 25 cm," is received in formalin and consists of two white and montgomery soft tissue fragments that measure 0.3 and 0.6 cm in greatest dimension. The larger tissue fragment is inked and bisected. The specimen is entirely submitted in (J1). K. The specimen, labeled and designated "Nunochreiber, B," and designated on the requisition "rectal polyp," is received in formalin and consists of five montgomery soft tissue fragments that measure 0.4 to 0.8 cm in greatest dimension. One tissue fragment is inked and bisected. The specimen is entirely submitted in (K1). FB (under the direct supervision of a pathologist) The Gross Description was prepared using a voice recognition system. The report was reviewed for accuracy; however, sound-alike word errors, addition and/or deletions may occur. If there is any PATIENT NAME: GOPAL RENE PATHOLOGY DATE OF : 54 REPORT #: [id number] PHYSICIAN: JOSSIE COLUNGA PCP: LUIS CARLOS PRITCHARD MD REPORT IS CONFIDENTIAL AND NOT TO BE RELEASED WITHOUT AUTHORIZATION [address] [place], [place] [address] Signed question about this report, please contact Client Services. PERFORMING LABORATORY: The technical component was performed by [facility], [address] [place] [address] (CLIA# [id number]). Professional interpretation was performed by [facility], [address] [place] [id number] (CLIA#: [id number]). Diagnostician: Peyman Gaffney MD Pathologist Electronically Signed 07/17/2022 Copies: ~ PATIENT NAME: GOPAL RENE PATHOLOGY DATE OF : 54 REPORT #: [id number] PHYSICIAN: [facility] PCP: LUIS CARLOS PRITCHARD MD REPORT IS CONFIDENTIAL AND NOT TO BE RELEASED WITHOUT AUTHORIZATION
--- NOTE | 2022-07-17 15:27 | NUR ---
AWAKE, DENIES PAIN. NO CHIANGES.
--- NOTE | 2022-07-17 16:15 | NUR ---
DR. CHILEL HERE TO SEE PATIENT. ORDERS RECIEVED FOR KUB.
--- NOTE | 2022-07-17 19:13 | NUR ---
DR. ROSARIO NOTIFIED OF RESULTS OF KUB. REPORT TO NEXT SHIFT.
--- NOTE | 2022-07-17 19:50 | NUR ---
PT SITTING UP IN BED ON PHONE - APPROPRIATE CONVERSATION AND ORIENTATION. RT IN ROOM TO ADMINISTER HEMANT FAROOQ.
--- NOTE | 2022-07-17 20:39 | NUR ---
Just got up and used commode, will re-take within the hour per RN.
--- NOTE | 2022-07-17 21:10 | NUR ---
ASSESSMENT COMPLETE - COARSE LUNG SOUNDS WITH OCCASIONAL COUGH, PT APPRECIATES NEB TX. ORIENTED THIS EVENING WITH IMPROVED CONVERSATION SPEECH. ENCOURAGED SLEEP - PT DENIES NEED FOR PAIN MEDICATION AT THIS TIME. NG TUBE SECURE AND AT LIS - REMAINS TO DRAIN COPIOUS AMOUNT OF GREEN OUTPUT. CALL LIGHT AT SIDE. VS WNL.
--- NOTE | 2022-07-17 21:52 | NUR ---
Assisted patient to bedside commode with two person assist. One person assist back to bed. Positioned in bed with two pillows under right leg. Call light within reach.
--- NOTE | 2022-07-17 22:43 | NUR ---
PT RESTING IN BED WITH EYES CLOSED - RR EVEN AND UNLABORED. HOB AT 50 DEGREES. CALL LIGHT AT SIDE, VS WNL.
--- NOTE | 2022-07-17 23:30 | NUR ---
PT RESTING IN BED, WAKES EASILY WITH SOUND/TOUCH. IV SITE WNL - LR INSFUSING AT 200ML/H. PT NG TUBE REMAINS PATENT , ASSESSMENT UNCHANGED FROM EARLIER ASSESSMENT. CALL LIGHT AT SIDE, PT DENIES NEEDS AT THIS TIME.
--- NOTE | 2022-07-18 00:10 | NUR ---
Did vitals, emptied nowak and a warm blacket.
--- NOTE | 2022-07-18 01:52 | NUR ---
PT RESTING IN BED WITH HOB ELEVATED, EYE CLOSED RR EVEN AND UNLABORED. CALL LIGHT AT SIDE. VS WNL.
--- NOTE | 2022-07-18 02:18 | NUR ---
RN IN ROOM TO ANSWER CALL LIGHT - PT REQUESTS PAIN MEDICATION, PRN MORPHINE ADMINISTERED FOR 6/10 L LEG AND BACK PAIN. PT REPOSISTIONED. NG TUBE RESECURED USING NOSE ADHESIVE. PT DENIES FURTHER NEEDS. CALL LIGHT IN REACH.
--- NOTE | 2022-07-18 04:00 | NUR ---
ASSESSMENT COMPLETE, UNCHANGED - PT ASLEEP UPON ENERING ROOM BUT WAKES EASILY WITH SOUND. VS WNL. PT DENIES NEEDS AT THIS TIME.
--- NOTE | 2022-07-18 06:41 | NUR ---
PT RESTING IN BED WITH EYES CLOSED. CALL LIGHT AT SIDE.
--- NOTE | 2022-07-18 08:02 | NUR ---
PT CARE ASSUMED. PT RESTING IN BED WATCHING TV. REPORTS PAIN IS MUCH IMPROVED. PT STATES HE JUST RECEIVED BREATHING TREATMENT AND IS FEELING MUCH BETTER. LOOSE COUGH. MORNING MEDS GIVEN
--- NOTE | 2022-07-18 08:40 | NUR ---
No change in plan for case management.
--- NOTE | 2022-07-18 09:02 | NUR ---
PATIENT RESTING IN BED, VITALS AND I&OS CHARTED. CORNEJO EMPTIED. CALL LIGHT IN REACH
--- NOTE | 2022-07-18 09:23 | NUR ---
PT REPORTS PAIN REMAINS LOW AT 2-3/10. FLUIDS HANGING. DENIES NEEDS
--- NOTE | 2022-07-18 10:42 | NUR ---
PT RESTING, APPEARS TO BE SLEEPING. RESPS EVEN AND UNLABORED. IV INFUSING
--- NOTE | 2022-07-18 11:53 | NUR ---
PT REPOSTITIONED IN BED. SWELLING TO LEFT LOWER EXTREMITY REMAINS THE SAME. SIGNIFICANT BRUISING. PT REPORTS PAIN AT 5/10, MEDICATED WITH MORPHINE AND ZOFRAN. DR ROSARIO IN TO SEE PT
--- NOTE | 2022-07-18 13:47 | NUR ---
NO CHANGE IN PT ASSESSMENT. REPORTS NO PAIN AT THIS TIME.
--- NOTE | 2022-07-18 13:57 | NUR ---
REPORT GIVEN TO [facility]J [facility] FOR MED SURG TRANSFER
--- NOTE | 2022-07-18 14:11 | NUR ---
PT ALERT, ORIENTED AND SITTING IN BED WITH NGT IN USE.PT SAYS HE FEELS MUCH BETTER, NOT HAPPY WITH NGT. GAVE ENCOURAGEMENT, SAID HE IS WANTING TO QUIT SMOKING AND DRINKING. LIVES ALONE AND HAS SEEN THINGS DIFFERENTLY NOW. GAVE PT A G.POST, REQUESTED PRAYER AND PT GAVE PERMISSION TO SHARE WITH RN ABOUT CESSATION HELP. MENTIONED TO DEBBI ALVES, WILL FOLLOW
--- NOTE | 2022-07-18 14:31 | NUR ---
PATIENT TO THE MEDICAL FLOOR, ALERT AND ORIENTED X4. PATIENT'S VITAL SIGNS STABLE, AFEBRILE. PATIENT HOOKED TO LIWS, NG INTACT TO RIGHT ORANGE COLORED GASTRIC CONTENT NOTED. PATIENT DENIES NAUSEA AND OR PAIN. IV SITE PATENT, FLUIDS INFUSING PER PROVIDER ORDER. PATIENT ORIENTED TO ROOM AND CALL LIGHT. NO CURRENT NEEDS, PERSONAL SUPPLIES AND CALL LIGHT WITHIN REACH.
--- NOTE | 2022-07-18 16:09 | NUR ---
VERBAL ORDER OBTAINED FROM DR. CHILEL TO START LR @ 85ML/HR CONTINUOUS AFTER CURRENT BAG OF FLUID IS DONE.
--- NOTE | 2022-07-18 16:53 | OR ---
[facility] [address] [place], [place] [address] Signed DATE OF OPERATION: 07/11/2022 SURGEON: Mary Chilel MD PREOPERATIVE DIAGNOSES: 1. Dark red rectal bleeding. 2. Epigastric pain. 3. Chronic alcohol abuse. POSTOPERATIVE DIAGNOSES: 1. Duodenitis with mild nodularity and without ulceration. 2. Mild chronic gastritis. PROCEDURE: Esophagogastroduodenoscopy with biopsy. ANESTHESIA: Intravenous sedation propofol infusion; Mary Nair CRNA. INDICATIONS: This 72-year-old white man is a patient of Dr. Pritchard, recently suffering a fall related to alcohol use and causing fracture to his left tibia. He is seen by Dr. Meeks. He presented to the emergency room yesterday, having a syncopal episode in the parking lot of Dr. Meeks who performed a short segment of CPR on him. He was found to have a fair amount of dark red black stool and was transported to the intensive care unit for further management for presumed GI bleed. He had no associated hematemesis. Notably, he also was chronically anticoagulated with Coumadin for history of DVT and pulmonary embolism. He has been reversed on his anticoagulant with Kcentra and vitamin K. His hematocrit posttransfusion was noted to be 33.1. He has had no hematemesis since hospitalization, but has passed some dark stool. He is admitted to undergo upper endoscopy at this time to assess for an upper gastrointestinal source of bleeding. The risks of bleeding, infection, and perforation were reviewed with me, understands and wished to proceed. Findings he was maintained in the supine position for endoscopy on the basis of his leg and splint. Findings showed chronic gastritis and subacute duodenitis with mild nodularity for which biopsies were obtained. CLOtest was negative. There was no lesion on the esophagus, stomach, or duodenum that would account for actual anemia, however. DESCRIPTION OF PROCEDURE: The patient was brought to the endoscopy suite and placed in the semirecumbent position. Electronically Signed By: MARY CHILEL MD 07/18/22 1653 PATIENT NAME: GOPAL RENE OPERATIVE REPORT DATE OF : 54 REPORT #: [id number] PHYSICIAN: MARY CHILEL MD PCP: LUIS CARLOS PRITCHARD MD REPORT IS CONFIDENTIAL AND NOT TO BE RELEASED WITHOUT AUTHORIZATION [facility] [address] [place], [place] [address] Signed Body position changed to left lateral was not feasible given his splint from his left tibia fracture. He was given intravenous sedation with full cardiopulmonary monitoring. A bite block was placed. An Olympus video upper endoscope was passed in the hypopharynx. The vocal cords and surrounding soft tissue were normal. The scope was advanced down the esophagus, which was essentially normal. There was no evidence of varices, ulceration, bleeding, or Sonia-Tarango tear. The scope was advanced to the stomach, which was insufflated with air. There was mild chronic gastritis but no sign of ulcer or neoplasm. The pylorus was normal. Scope was passed through it into the duodenum. Second and third portions were reasonably normal. The bulbar portion had duodenitis and some inflammatory nodularity. Margin Analyst nodule was biopsied. The scope was withdrawn. A biopsy was then taken of stomach for both NOLBERTO and pathologic testing. Retroflexed view was undertaken showing a reasonably good flap valve. The scope was withdrawn. The distal esophagus was examined and found to have no sign of pathology to account for anemia. The patient was taken to recovery room in good condition. CONCLUDING DIAGNOSIS: No source on upper endoscopy that would account for bleeding to the level he has had. PLAN: We will initiate bowel prep and anticipate colonoscopy likely tomorrow. MD ROSE Mendieta/DEANNAL /[id number] cc: Dr. Jose Enrique Mohr MD Copies: SARAH MOHR MD ~ Electronically Signed By: MARY CHILEL MD 07/18/22 1653 PATIENT NAME: GOPAL RENE OPERATIVE REPORT DATE OF : 54 REPORT #: [id number] PHYSICIAN: MARY CHILEL MD PCP: LUIS CARLOS PRITCHARD MD REPORT IS CONFIDENTIAL AND NOT TO BE RELEASED WITHOUT AUTHORIZATION
--- NOTE | 2022-07-18 16:53 | OR ---
[facility] [address], [place] [address] Signed DATE OF OPERATION: 07/12/2022 SURGEON: Mary Chilel MD PREOPERATIVE DIAGNOSES: 1. Hematochezia. 2. Anemia. 3. Chronic anticoagulation. 4. Upper endoscopy on 07/11/2022, negative for bleeding source. POSTOPERATIVE DIAGNOSIS: Multiple polyps; questionable ulcerated lesion of cecum. PROCEDURES: 1. Total colonoscopy to cecum with biopsy of possible ulcerated cecal lesion and polypectomy x15. 2. Tattoo of the cecum. ANESTHESIA: Intravenous sedation; propofol infusion, Long Ledezma CRNA INDICATIONS: This 72-year-old white male was admitted on 07/10/[address] Mohr. His primary care provider is Dr. Pritchard. The patient was admitted with anemia and hematochezia. Upper endoscopy was performed yesterday showing no lesion to account for the bleeding. He did have duodenitis, however. The patient has family history of colon cancer in his mother. He has never had colonoscopy in the past. The patient has significant and severe alcoholism as well. 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 He is admitted after undergoing bowel prep yesterday for colonoscopy today to better characterize the source of his hematochezia. The risks of bleeding, infection, perforation, anesthetic complications, so forth were all reviewed with him. He understand and wished to proceed. FINDINGS: The prep was impressively good overall. Complete colonoscopy was undertaken to the cecum. Full intubation of the cecum was accomplished. He had polyps scattered throughout the colon, some of them on the rather large side. The cecum had a questionable ulcerated lesion behind the ileocecal valve, though this was not entirely certain. The area was marked with Endo magdalena tattoo. It was also biopsied. It did not have the typical characteristic appearance of a cecal carcinoma, particularly but there Electronically Signed By: MARY CHILEL MD 07/18/22 8542 PATIENT NAME: GOPAL RENE OPERATIVE REPORT DATE OF : 54 REPORT #: [id number] PHYSICIAN: MARY CHILLE MD PCP: LUIS CARLOS PRITCHARD MD REPORT IS CONFIDENTIAL AND NOT TO BE RELEASED WITHOUT AUTHORIZATION [facility] [address], [place] [address] Signed is some suspicion for that actually. The CT scan might be beneficial at this point, pending pathology report. The remaining colon had very bleeds variable sized variably sized polyps throughout all of them many excised. Admittedly, there were some remaining very small polyps that were not excised. DESCRIPTION OF PROCEDURE: The patient was brought to the endoscopy suite and placed in lateral decubitus position. Preoperative antibiotic Ancef was given as he does have hip replacement history. He was given intravenous sedation with propofol infusional technique by the trailer rental clerk with full cardiopulmonary monitoring. He was then positioned to the left side down, mindful of his splint from a recent tibial fracture. Digital rectal examination was found to be normal. An Olympus video colonoscope was passed into the rectum and manipulated throughout the colon, ultimately intubating the cecum. Irrigation was undertaken. There were small adenomatous appearing polyps of the cecum. Two were excised with hot snare technique. The scope was withdrawn and examination throughout showed several polyps in the ascending colon and transverse colon. These were excised with hot snare polypectomy technique and passed for pathology. The scope was once again reintroduced as far as possible to the cecum, where thorough evaluation and intubation of the cecum was undertaken seeking to intubate the ileum itself. The ileum could not be well visualized, but there did appear to be firmness and possibly ulcerated cecal mass, though this was not as certain as usual. Multiple biopsies were taken there, however. Further efforts to intubate the ileum were not successful. The orifice never really fully seen. The scope was then withdrawn back to the level of the transverse colon and further withdrawal undertaken. Multiple polyps were seen including three polyps at 95 cm, excised with hot snare technique, two at 77 cm, two at 60 cm, one at 30 cm, another 25 cm, another 20 cm, and ultimately on retroflexed view, a low rectal polyp also excised with hot snare technique. In aggregate, 15 polyps were excised in total. We are mindful there remained some very small polyps that were not addressed today. The patient was taken to the recovery room in good condition, taken to the Intensive Care Unit following that. CONCLUDING DIAGNOSIS: Multiple polyps. Uncertain if any were actually causing anemia or bleeding. The cecal lesion is of uncertain origin and may simply be the residual ileocecal valve mucosa itself. A CT scan may help differentiate whether there is in fact was a cecal neoplasm. Electronically Signed By: MARY CHILEL MD 07/18/22 9102 PATIENT NAME: GOPAL RENE OPERATIVE REPORT DATE OF : 54 REPORT #: [id number] PHYSICIAN: MARY CHILEL MD PCP: LUIS CARLOS PRITCHARD MD REPORT IS CONFIDENTIAL AND NOT TO BE RELEASED WITHOUT AUTHORIZATION [address] [place], [place] [address] Signed MD ROSE Mendieta/DEANNAL /[id number] cc: MD Ariana Grimm MD Copies: LUIS CARLOS PRITCHARD MD, CYNTHIA MD ~ Electronically Signed By: MARY CHILEL MD 07/18/22 1653 PATIENT NAME: ANJUGOPAL LEE OPERATIVE REPORT DATE OF : 54 REPORT #: [id number] PHYSICIAN: MAYR CHILEL MD PCP: LUIS CARLOS PRITCHARD MD REPORT IS CONFIDENTIAL AND NOT TO BE RELEASED WITHOUT AUTHORIZATION
--- NOTE | 2022-07-18 17:29 | NUR ---
PT IN BED. VITALS AND IS AND OS COMPLETE. NO NEEDS AT THIS TIME. CALL LIGHT WITHIN REACH
--- NOTE | 2022-07-18 19:21 | NUR ---
BEDSIDE REPORT DONE. PATIENT RESTING BACK IN BED NOTED 3+ EDEMA TO LLE, KNEE IMMOBILIZER IN PLACE. PATIENT REQUESTING ICE FOR SWELLING. NG IN PLACE AT INTERMITTENT SUCTION. NO OTHER NEEDS AT THIS TIME. RATES PAIN 3/10 ON PAIN SCALE AND REPORTS TOLERABLE.
--- NOTE | 2022-07-18 20:26 | NUR ---
FULL BODY ASSESMENT DONE. PROVIDED ICE PACKS FOR LEFT LOWER EXTREMITY, REPOSITIONED PILLOW TO LAY VERTICAL SUPORTING KNEE SPACE POSTERIORALLY, FLOATING HILLS. SECOND K RIDER INFUSING. ADMINISTERED HS MEDICATIONS PER SEP. PATIENT REPORTS PAIN 0/10 ON PAIN SCALE. NG OUTPUT 50 MLS. GOOD URINE OUTPUT, URINE APPEARS DARK YELLOW. NO OTHER NEEDS AT THIS TIME. RT IN ROOM PROVIDING BREATHING TREATMENT, NOTED EXPIRATORY WHEEZE.
--- NOTE | 2022-07-18 21:32 | NUR ---
PHONE CALL FROM NANCY HERNANDEZ RESULTS NOT BACK FOR REVIEW. CALLED IMAGING, ZEKE WILL PUSH THROUGH STAT. UPDATED.
--- NOTE | 2022-07-18 22:21 | NUR ---
FULL BODY ASSESSMENT DONE. NOTED 3 PLUS EDEMA IN LEFT LOWER EXTREMITY, PROVIDED ICE. ELVATED ON PILLOW. ADMINISTERED HS MEDICAITONS PER SEP. K RIDER INFUSING. PATIENT NG CONNECTED TO INTERMITTENT SUCTION. CORNEJO DRAINING COCENTRATED URINE. PROVIDED ICE CHIPS. BOWEL TONES HYPOACTIVE IN ALL FOUR QUADRANTS. NO OTHER NEEDS AT THIS TIME.
--- NOTE | 2022-07-19 00:16 | NUR ---
PHONE CALL TO DR. VALADEZ, CONCERNS WITH LEFT LOWER EXTREMITY, APPEARS TO HAVE INCREASED SWELLING AND HOT TO TOUCH. PEDAL PULSE FAINT WITH DOPPLER. NEW SWELLING TO LEFT FOOT 4+ PITTING EDEMA. NEW ORDER FOR LAXIX IV 20 MG, AND TO STOP MAINTENANCE FLUIDS. UPDATED PATIENT ON POC, VERBALIZED UNDERSTANDING.
--- NOTE | 2022-07-19 01:21 | NUR ---
PATIENT CONTINUES TO RATE PAIN 5/10 ON PAIN SCALE, BUT VERBALIZES PAIN IS TOLERABLE AFTER ADMINISTRATION OF IV MORPHINE. ABLE TO PLACE TWO MORE PILLOWS UNDER IMMOBILIZED LEG, AND READJUSTED KNEE IMMOBILIZER, NOTED HAD SLID DISTALLY. PATIENT PULLING AT CORNEJO CATHETER, STATES "IT HURTS" REASSURED PATIENT THAT PULLING ON THE CORNEJO TUBE INCREASE IRRITATION AND SHOULD LEAVE ALONE, NOTED SWELLING TO MEATUS. PLANCED PILLOW CASE AROUND AREA FOR COMOFORT. PROVIDED FRESH ICE BAGS TO LEFT KNEE. NG TUBE DISCONNECTED FROM PATIENT RESTLESS IN BED, HOOKED BACK UP 300 ML OUTPUT NOTED RIGHT AWAY. IV LASIX APPEAR EFFECTIVE, URINE NOW APPEARS CLEAR YELLOW. PATIENT RESTING BACK IN BED, BREATHING REGULAR AND EVEN. APPEARS CALM. CALL LIGHT IN PLACE. UPDATED PATIENT ON POC. NO OTHER NEEDS AT THIST TIME.
--- NOTE | 2022-07-19 02:16 | NUR ---
pt SLEEPING, AWAKENS TO VOICE. VSS. SCHEDULED MEDICATION ADMINISTERED. pt RATES PAIN 5/10 IN LEFT LEG "BETTER". VFP APPLIED LLE, AND SCD TO RIGHT LEG. NGT TO LOW INT SUCTION IN PLACE. CALL LIGHT IN REACH. pt DENIES ANY NEEDS AT THIS TIME.
--- NOTE | 2022-07-19 04:25 | NUR ---
ROUNDING ON PATIENT, NOTED MOVED LEGS OFF PILLOWS FOR ELEVATION. AWOKE PATIENT AND REPOSITIONED ON TWO PILLOWS LAYING VERTICAL. PEDAL PULSE STRONG, EDEMA DECREASED TO 2+, LEFT LEG APPEARS SIGNIFICANTLY LESS SWOLLEN, ALONG WITH DECREASED SWELLING TO GENITELIA. PATIENT RATES PAIN 7/10 AND APPEARS TO BE GRIMACING, REQUESTING MORPHINE IV. STATES " PLEASE WATER IT DOWN SO IT DOESN'T MAKE ME GOOFY" REASSURED PATIENT WOULD DILUTE WITH NS.
--- NOTE | 2022-07-19 04:40 | NUR ---
ADMINISTERED IV MORPHINE DILUTED IN 10 ML OF NS, PUSHED OVER 2 MINUTES, PATIENT STATED "I LIKE IT DONE THAT WAY, THEN I DON'T GET GOOFY" PATIENT RESTING BACK IN BED, EYES CLOSED. RR 20, CHEST RISE EVEN AND REGULAR. BED ALARM ON.
--- NOTE | 2022-07-19 06:30 | NUR ---
DR. CHILEL INTO ROOM, IV FLUIDS RESTARTED AT LR @ 85ML/HR. DISCUSSED PATIENTS INCREASED EDEMA TO EXTREMITIES AND GENITAL AREA. DR. CHILEL VERBALIZED AND DEMONSTRATED THE NEED TO MANUALLY PUSH THE FLUID OUT THE FORESKIN TISSUE TO DECREASE RISK OF NECROSIS. DR. CHILEL ALSO VERBALIZED WOULD BE CHANGING THE PATIENT PAIN MEDICATIONS AND DISCONTINUING THE MORPHINE SECONDARY TO THE RISK OF SLOWING GUT ACTIVITY.
--- NOTE | 2022-07-19 08:32 | CONS ---
[facility] [address], [place] [address] Signed DATE OF CONSULTATION: 07/10/2022 REQUESTING PHYSICIAN: Dr. Mohr. PROBLEM: Blood loss anemia related to rectal bleeding. HISTORY OF PRESENT ILLNESS: This 72-year-old white male has likely a chronic alcoholic. He lives in [place], [place]. He was evaluated at [facility] three days ago with a proximal tibia fracture. He was evaluated and treated by Dr. Meeks. His fracture was related to a ground level fall, which upon close discussion was likely associated with excessive alcohol intake. The patient is chronically anticoagulated with Coumadin on the basis of a deep venous thrombosis and subsequent pulmonary embolism (recurrent in the distant past. He was seen Dr. Meeks in followup today with a splint on his left leg when he had a syncopal episode in the parking lot. He was given a brief amount of CPR under the direction of Dr. Meeks and was transported by emergency medical service to the hospital. He was noted to have a systolic pressure of 118 with a pulse of 100. [place] Coma Scale of 15. The patient was evaluated thoroughly and underwent reversal of anticoagulation with vitamin K and other agents (Kcentra). He was noted to have an INR greater than 4. Chest x-ray was performed, which was normal. His initial hemoglobin was 11.6, subsequently lower. Transfusion therapy was initiated. The patient has had no associated hematemesis. He does describe some upper abdominal and epigastric pain. He also describes a family history of colon cancer in his mother; the patient himself has never had colonoscopy or other colon evaluation that he knows. He has been found to have a creatinine of 1.23. He describes his primary physician as "Dr. Orellana" from [place] four years ago. I have no recollection of the provider of that name in this area four years ago. He is quite certain that the provider was in the [place] area, however. He was evaluated in the emergency room and admitted by Dr. Mohr to the intensive care unit for further evaluation. Since admission, he has had no further rectal bleeding. He characterizes the bleeding as "dark red;" his son accompanies him, describes it as dark as well. He affirms there has been no hematemesis. He denies any prior history of ulcer. Electronically Signed By: MARY CHILEL MD 07/19/22 0832 PATIENT NAME: GOPAL RENE CONSULTATION DATE OF : 54 REPORT #: [id number] PHYSICIAN: MARY CHILEL MD PCP: LUIS CARLOS PRITCHARD MD REPORT IS CONFIDENTIAL AND NOT TO BE RELEASED WITHOUT AUTHORIZATION [facility] [address], [place] [address] Signed SURGICAL HISTORY: Does include neck fusion several levels. He has also had left hip surgery. MEDICAL PROBLEMS: Include hypertension and history of deep venous thrombosis with pulmonary embolism with chronic anticoagulation. The patient does use alcohol on a daily basis, four beers daily as well as two hard drinks . SOCIAL HISTORY: He is no longer . He has grown children. He lives in [facility] in [place]. 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 ALLERGIES: He has allergy to penicillin. REVIEW OF SYSTEMS: He denies any dysphagia or hematemesis. Has no focal abdominal pain currently, though has had some epigastric pain from [id number]. PHYSICAL EXAMINATION: GENERAL: Large white man, who is alert and oriented. Does not look systemically toxic. VITAL SIGNS: He is 6 feet 2 inches tall, 111 kg, BMI 31.5. HEENT: Trachea is midline. He has no hoarseness. There is no cervical adenopathy. CHEST: Clear. HEART: Regular. ABDOMEN: Soft and nondistended. There is no focal mass or tenderness. He has no ascites. EXTREMITIES: Show no clubbing, cyanosis, or edema. He has a splint on his left leg related to his left tibial fracture. LABORATORY STUDIES: Show a creatinine 1.23 and INR initially 4.32. White count initially of 10, hematocrit 33.3, and platelets of 209,000. ASSESSMENT: The patient has had blood loss enough to show hematochezia and low hematocrit. He has a very high risk for a more proximal source of his bleeding specifically, ulceration, gastritis, or even neoplasm. I would recommend upper endoscopy be performed tomorrow. If it is negative, then consideration will be made for colonoscopy. He is at increased with a colonic source of problem as well. Given his family history of colon cancer and his previous history of no colonic evaluation. The risks of bleeding, infection, and perforation related to upper endoscopy was reviewed with him. He understands and wished to proceed. Electronically Signed By: MARY CHILEL MD 07/19/22 0832 PATIENT NAME: GOPAL RENE CONSULTATION DATE OF : 54 REPORT #: [id number] PHYSICIAN: MARY CHILEL MD PCP: LUIS CARLOS PRITCHARD MD REPORT IS CONFIDENTIAL AND NOT TO BE RELEASED WITHOUT AUTHORIZATION [address] [address] Signed MD ROSE Mendieta/MODL /[id number] cc: MD Ariana Sifuentes MD Copies: YOSEF MEEKS MD, CYNTHIA MD ~ Electronically Signed By: MARY CHILEL MD 07/19/22 0832 PATIENT NAME: MANOJDEANGOPAL CONSULTATION DATE OF : 54 REPORT #: [id number] PHYSICIAN: MARY CHILEL MD PCP: LUIS CARLOS PRITCHARD MD REPORT IS CONFIDENTIAL AND NOT TO BE RELEASED WITHOUT AUTHORIZATION
--- NOTE | 2022-07-19 09:15 | NUR ---
REPORT RECIEVED FROM NIGHT RN AND PT CARE RESUMED. PT. IS DROWSY BUT AWAKENS EASILY TO VOICE. ORIENTED TO ALL. REPORTS 5/10 RLE PAIN BUT REFUSES PAIN MEDS. IMMOBILIZER REMOVED PER ORDER. PT. ASSISTED WITH REPOSITIONING. ASSESSMENT COMPLETED. IMAGING IN FOR SBFT STUDY AND NG CLAMPED AFTER PROCEDURE. WILL CONTINUE TO MONITOR.
--- NOTE | 2022-07-19 13:05 | NUR ---
PT. C/O SOB AND O2 SAT WAS 93% ON RA. POSITIONED HIGH FOWLERS. HE IS COUGHING UP YELLOW THICK LIQUID. LUNGS COARSE THROUGHOUT WITH WHEEZING. MD UPDATED AND ORDER GIVEN TO CONNECT BACK TO INT. WALL SUCTION. WITHIN 15 CANISTER FULL AND CHANGED. PT. ASSISTED WITH REPOSITIONING. DENIES FURTHER NEEDS. CALL LIGHT IN REACH.
--- NOTE | 2022-07-19 14:30 | NUR ---
STAFF HAD JUST BEEN IN WITH PT-SAID HE WAS EXHAUSTED. NGT IN USE. REQUESTED I COME BACK ANOTHER TIME. GAVE BLESSING AND WILL FOLLOW
--- NOTE | 2022-07-19 16:20 | NUR ---
PT. ASSISTED WITH POSITIONING FOR XRAY. HE REPORTS PAIN IS TOLERABLE AT THIS TIME. PRODUCTIVE COUGH AND O2 SAT IS 94% RA. FAMILY IN THE ROOM AND HAS LOTS OF QUESTIONS. REQUEST TO SPEAK WITH . MD AZUL. WILL CONTINUE TO MONITOR.
--- NOTE | 2022-07-19 18:07 | NUR ---
ROUNDING ON PT. HE C/O CHILLS. TEMP CHECKED AND WAS 101.7 MD CALLED AND WILL PLACE NEW ORDERS. WILL CONTINUE TO MONITOR.
--- NOTE | 2022-07-19 19:36 | NUR ---
TEMP REASSESSED. TEMP IS NOW 99.2
--- NOTE | 2022-07-19 19:50 | NUR ---
PATIENT'S FEVER APPEARS TO HAVE BROKE, PATIENT SKIN CLAMMY. RATING PAIN 5/10 ON PAIN SCALE, PAIN WITH COUGHING RELATED TO NG TUBE IN THROAT, THEN MOST OF THE PAIN INVOLVING LEFT LOWER EXTREMITY. ADMINISTERED TORADOL PER MAR. LLW IS WARM TO TOUCH, STRONG PEDAL PULSE, NO EDEMA TO FOOT NOTED, GENERALIZED 1+ IN LEG. PATIENT LUNG SOUNDS COURSE AND WHEEZY, STATES " I THINK I MAY HAVE CHOKED GASTROGRAPHEN INTO MY LUNGS EARLIER". BOWEL TONES HYPOACTIVE. NG CANISTER HAS LARGE VOLUME OF OUTPUT, BILE COLOR. ADMINISTERED HS MEDICATIONS.
--- NOTE | 2022-07-19 20:17 | NUR ---
[address] CHILEL, NOTIFIED OF PATIENT ABDOMINAL XRAY RESULTS. NEW ORDER TO ADVANCE NG TUBE 9CM, AND KUB IN THE MORNING. ALSO NOTIFIED DR. CHILEL OF PATIENT CONERNS OF POSSIBLY ASPIRATING ON THE GASTROGRAPHEN EARLIER IN THE DAY AND PATIENT BEING FEBRILE. DR. CHILEL VERBALIZED AWARENESS. [address] VALADEZ, MADE AWARE OF PATIENT CONCERNS WITH POSSIBLY APSIRATING ON GASTROGRAPHEN. DR. VALADEZ VERBALIZED NEW ORDER FOR PORTABLE CHEST XRAY AND NEW ORDERS FOR ANTIBIOTICS.
--- NOTE | 2022-07-19 20:52 | NUR ---
ADVANCED NG TUBE 9CM, PATIENT TOLERATED POORLY. APPLIED NEW SECUREMENT DEVICE. NG TO INTERMITTENT SUCTION. CALLED SENIOR TECHNICAL SUPPORT ENGINEER TO GET PORTABLE CHEST XRAY.
--- NOTE | 2022-07-19 21:07 | NUR ---
CHEST XRAY DONE. PATIENT RESTING BACK 30 DEGREE ANGLE. STATES " I AM ACTUALLY FEELING OKAY RIGHT NOW". RATES PAIN 2/10 ON PAIN SCALE. PROVIDED PATIENT WITH ORAL CARE SUPPLIES. NO OTHER NEEDS AT THIS TIME.
--- NOTE | 2022-07-20 02:06 | NUR ---
VS WNL. PATIENT RESTING WITH EYES CLOSED. NG PUTTING OUT LARGE VOLUMES INTO COLLECTION CONTAINER. ADMINISTERED SCHEDULED MEDICATIONS. PATIENT RATES PAIN 3/10 ON PAIN SCALE, TOLERABLE. STATES " I FEEL LIKE I COULD HAVE A BM SOON" PATIENT VERBALIZED WOULD CALL WHEN READY.
--- NOTE | 2022-07-20 06:22 | NUR ---
ASSISTED WITH CHANGING ATTEND, SMALL FOUL ODOROUS MUCUS BOWEL MOVEMENT, LIGHT BROWN. PATIENT CONTINUES TO PUT OUT LARGE AMOUNTS OF BILE TO NG COLLECTION CONTAINER. URINE ADEQUATE, HOWEVER NOTED DARK TEA LIKE COLOR. PROVIDED ICE CHIPS FOR COMFORT. ABDMEN LESS DISTENDED THIS MORNING, BOWEL TONES ACTIVE. PATIENT REPORTS FELLING LIKE HE GOT SOME GOOD REST LAST NIGHT. ADMINISTERED TORADOL THIS MORNING FOR PAIN 4/5 ON PAIN SCALE. GENERALIZED EDEMA TO LEFT LOWER EXTREMITY, PATIENT ABLE TO MOVE MORE WITH LESS PAIN. STATES "I FEEL SO MUCH BETTER GETTING THAT IMMOBILIZER OFF". IV ANTIBIOTICS INFUSING. NO OTHER NEEDS AT THIS TIME. CALL LIGHT WITHIN REACH.
--- NOTE | 2022-07-20 08:30 | NUR ---
REPORT RECEIVED FROM NIGHT RN AND PT. CARE RESUMED. PT. IS DROWSY AND AWAKENS EASILY TO VOICE.ORIENTED TO ALL. LLE ELEVATED AND EDEMA IMPROVED SINCE YESTERDAY. ASSESSMENT COMPLETED. NG DRESSING REPLACED ON NOSE. GOWN CHANGED. SISTER IN THE ROOM AND UPDATED. PT. LEFT RESTING WITH CALL LIGHT IN REACH AND ALARM ON.
--- NOTE | 2022-07-20 09:00 | NUR ---
PT. C/O LLE AND BACK PAIN. ADMIN PRN MED. LEFT RESTING WITH CALL LIGHT IN REACH.
--- NOTE | 2022-07-20 11:15 | NUR ---
PT SITTING UP IN BED PULLING HIMSELF UP WITH BAR. NGT IN PLACE. ADMITTED THAT TODAY IS A DIFFICULT DAY. PT REQUESTED PRAYER GAVE ENCOURAGEMENT AND WILL FOLLOW
--- NOTE | 2022-07-20 15:40 | NUR ---
No plan for dc at this time. Conts. with NG and high output. No change in CM plan. Sister has been in frequently with pts son.
--- NOTE | 2022-07-20 17:33 | NUR ---
THIS NURSE IN THE ROOM TO CHECK NG OUTPUT. 200ML TOTAL FROM 6317-5116. PT STATES HE FEELS "GREAT". BED BATH COMPLETED. LEFT RESTING WITH FAMILY AT BEDSIDE.
--- NOTE | 2022-07-20 19:43 | NUR ---
RECEIVED REPORT FROM OFFGOING SHIFT, HOURLY ROUNDING INITIATED
--- NOTE | 2022-07-20 21:32 | NUR ---
IN PT ROOM FOR ROUNDING. PT RESTING IN BED, WATCHING TV. PT HAS NO COMPLAINT OF PAIN OR DISCOMFORT AT THIS TIME, CALL LIGHT IN REACH.
--- NOTE | 2022-07-21 00:23 | NUR ---
Pt output for NGT - 12-1600 = 200 mL [id number] = 100 mL 9039-1399 = 275 mL TOTAL NGT OUTPU 2769-1960 = 575 mL
--- NOTE | 2022-07-21 02:01 | NUR ---
IN PT ROOM FOR ROUNDING. PT RESTING WITH HOB ELEVATED, NG TUBE IN PLACE, NO INDICATION OF PAIN OR DISCOMFORT. CALL LIGHT IN REACH.
--- NOTE | 2022-07-21 05:00 | NUR ---
IN PT ROOM FOR ROUNDING, PT REQUESTING TO USE COMMODE. PT ASSISTED TO COMMODE, BACK TO BED WITHOUT INCIDENT. PT CALL LIGHT IN REACH.
--- NOTE | 2022-07-21 08:30 | NUR ---
REPORT RECEIVED FROM NIGHT RN AND PT CARE RESUMED. PT. IS ALERT AND ORIENTED TO ALL. REPORTS HAVING A "GOOD" NIGHT AND DENIES PAIN. IMMOBILIZER IN PLACE ON LLE AND NO INCREASED EDEMA OR TIGHTNESS NOTED. CMS INTACT. ASSESSMENT COMPLETED. NG TUBE SET LOW INT. SUCTION AND DRAINING YELLOW FLUID. ASSESSMENT COMPLETED AND MEDS ADMIN. DISCUSSED WORKING WITH P.T. SITTING IN CHAIR TO DAY. CALL LIGHT IN REACH.
--- NOTE | 2022-07-21 11:10 | NUR ---
ROUNDING ON PT. NG TUBE HAS BEEN REMOVED BY . PT. IS TOLERATING SMALL SIPS OF BROTH. DENIES PAIN OR NAUSEA. CALL LIGHT IN REACH.
--- NOTE | 2022-07-21 15:29 | NUR ---
HELPED PATIENT SIT ON THE BEDSIDE COMMODE HE WILL CALL WHEN HE IS DONE.
--- NOTE | 2022-07-21 16:56 | NUR ---
PT. RESTING IN BED. STATES HE IS TIRED. DISCUSSED DIET AND NOT DRINKING TOO MUCH TOO QUICKLY. DENIES PAIN OR NAUSEA. LEFT RESTING WITH CALL LIGHT IN REACH.
--- NOTE | 2022-07-21 17:54 | NUR ---
ROUNDING ON PT. HE IS HAVING CLEARS FOR DINNER AND TOLERATING WELL. DENIES NAUSEA PAIN. CALL LIGHT IN REACH.
--- NOTE | 2022-07-21 20:30 | NUR ---
EVENING MEDS GIVEN PER REQUEST OF PRIMARY RN, STERLING. IV SITES X2 WNL. MAINTENANCE FLUIDS PAUSED D/T ROCEPHIN ADMINISTRATION-SEE EMAR. RT DREAD [place] ALSO IN ROOM FOR SCHEDULED EVENING BREATHING TREATMENTS. I&O'S ALSO COMPLETED BY CONTRERAS CAPPS. WARM BLANKET PROVIDED, NO ADDITIONAL NEEDS OR CONCERNS. CALL LIGHT IN REACH. PRIMARY RN UPDATED AND AWARE.
--- NOTE | 2022-07-21 21:38 | NUR ---
IV PUMP ALARMING, IV ABX AND ELECTROLYTE REPLACEMENT BOTH COMPLETE. IV SITES X2 REMAINS WNL, MAINTENANCE FLUIDS RESUMED DIRECTED. PUMPS X2 ALSO CLEARED. CALL LIGHT IN REACH.
--- NOTE | 2022-07-21 21:56 | NUR ---
SCHEDULED 2200 FLAGYL INFUSING DIRECTED. NICOTINE PATCH ALSO REMOVED FROM RIGHT ARM. NO ADDITIONAL NEEDS, CALL LIGHT IN REACH.
--- NOTE | 2022-07-22 09:51 | NUR ---
PT TOLERATES CLEAR LIQUID DIET FOR MORNING MEAL. DENIES INCREASED PAIN OR NAUSEA. CONTINUES RESTING IN BED, DOZING AT THIS TIME, AWAKENS TO VOICE. NEEDED ITEMS IN REACH
--- NOTE | 2022-07-22 11:41 | NUR ---
DR BROWNING IN TO SEE PT ALL QUESTIONS ANSWERED. PT DENIES NEEDS AT THIS TIME
--- NOTE | 2022-07-22 13:56 | NUR ---
PT RESTING IN BED DENIES DISCOMFORTS OR NEEDS OF. HAD FULL LIQUID DIET FOR LUNCH, WELL TOLERATED. NO NAUSEA OR INCREASED PAIN BOWEL TONES ACTIVE PT PASSING GAS, LIQUID, AND FORMED STOOL THIS SHIFT.
--- NOTE | 2022-07-22 14:07 | NUR ---
DR BARCENAS IN TO SEE PT. REPORTED LOW URINE OUTPUT TO HER OF 175 THIS SHIFT.
--- NOTE | 2022-07-22 15:52 | NUR ---
PT SITTING UPRIGHT IN BED DENIES DISCOMFORTS OR NEEDS OF. TV IS ON NEEDED ITEMS ARE IN REACH.
--- NOTE | 2022-07-22 16:58 | NUR ---
PT CONTINUES TO FEEL WELL THIS SHIFT. EATING SOUP AND MASHED POTATOES FOR EVENING MEAL DENIES DISCOMFORTS. URINE OUTPUT HAS PICKED UP IV SL LOCKED. ABX DC'D PER DR BARCENAS. NO FURTHER NEEDS AT THIS TIME.
--- NOTE | 2022-07-22 20:06 | NUR ---
FULL BODY ASSESSMENT DONE. PATIENT RESTING BACK IN 45 DEGREEE ANGLE IN BED. APPEARS CALM. REPORTS PAIN WELL CONTROLLED 1/10 ON PAIN SCALE. PATIENT STATES " I AM HAPPY TO BE EATING SOMETHING AGAIN" PATIENT APPEARS TO BE IN GOOD SPIRITS. DISCUSSED POC FOR NIGHT, PATIENT VERBALIZES CONTENT. ANSWERED QUESTIONS AND CONCERNS.
--- NOTE | 2022-07-22 20:22 | NUR ---
PATIENT REQUESTING PAIN MEDICATION FOR CHRONIC BACK PAIN, RATES PAIN 10/05. NO PAIN MEDICATIONS AVAILABLE ON SEP. CALL TO DR. BARCENAS NEW ORDER FOR TYLENOL 650 MG Q6 HR PRN. ORDER READ BACK AND VERIFIED.
--- NOTE | 2022-07-22 21:24 | NUR ---
ASSISTED PRIMARY RN THALIA. WHITE BOARD UPDATED. TIDIED THE ROOM. PUT USED BLANKETS AWAY TO DIRTY BIN. ICE WATER REFILLED.
--- NOTE | 2022-07-23 05:36 | NUR ---
1 PA TO BEDSIDE COMMODE. PATIENT HAD LIQUID BLACK STOOL. PATIENT IS BACK IN BED. V/S AND I&O'S TAKEN AND CHARTED. ICE WATER REFILLED. GARBAGES PICKED UP.
--- NOTE | 2022-07-23 07:26 | NUR ---
pt. up to bedside commode, call light in reach, will call when he is done.
--- NOTE | 2022-07-23 07:40 | NUR ---
PT AWAKE SITTING UPRIGHT IN BED AT TIME OF SHIFT REPORT. DENIES NEED OF ANYTHING AT THIS TIME. FRESH H20 TO BEDSIDE CALL LIGHT IN REACH.
--- NOTE | 2022-07-23 10:17 | NUR ---
PT TOELRATES FULL LIQUID BREAKFAST NO INCREASED PAIN OR NAUSEA. AGREES HE FEELS EATING IS GOING WELL. HAS HAD SEVERAL LARGE LOOSE STOOLS GREENISH AND BLACK IN COLOR ALL LIQUID. STAFF REPORT PT REFUSED P/T AND IS HYPER CONCERNED R/T CORNEJO CATH STATING GETTING IT OUT IS A BIG OPERATION. EDUCATION PROVIDED ENCOURAGING HIM TO PARTICIPATE IN P/T HE VERBALIZES UNDERSTANDING. PT NOTIFIED CORNEJO MAY, OR MAY NOT, COME OUT TODAY AND IT IS NOT AN OPERATION. UNDERSTANDING VERBALIZED, HOWEVER PT SEEMS TO CONTINUE TO BE HYPERFOCUSED ON THIS.
--- NOTE | 2022-07-23 11:50 | NUR ---
PT SITTING UP IN THE CHAIR WATCHING TV WAITING FOR LUNCH. DENIES DISCOMFORTS OR NEEDS OF
--- NOTE | 2022-07-23 14:00 | NUR ---
PATIENT IS ADAMENT ABOUT TAKING A SHOWER TOMORROW, I HAVE OFFERED HIM A SHOWER MULITPLE TIMES AND HE IS SET ON WAITING.
--- NOTE | 2022-07-23 14:19 | NUR ---
PT HAS HAD A BUSY DAY WITH P/T AND O/T. UP TO THE CHAIR THEN BACK TO BED AFTER LUNCH TIME. NO C/O PAIN OTHER THAN SOME CATH DISCOMFORT. HOSE WAS PULLED TIGHT DURING A TRANSFER, ASSISTED TO RE-ADJUST AT THE SAME TIME DID CATH CARE AND PROVIDED EDUCATION. PT RESTING IN BED NOW, USES I/S WITH ENCOURAGEMENT. STATES HE WANTS TO NAP BEFORE THE FOOTBALL GAME
--- NOTE | 2022-07-23 18:28 | NUR ---
DR BROWNING IN TO SEE PT, ALL QUESTIONS ANSWERED PLAN GOING FORWARD DISCUSSED. PT TOLERATES FULL LIQUID DIET FOR EVENING MEAL ORDERS GIVEN TO ADVANCE TO SOFT.
--- NOTE | 2022-07-23 19:45 | NUR ---
CALL LIGHT ANSWERED. PATIENT C/O TIGHT SCD'S ON LEFT FOOT AND RIGHT LEG. DONE ADJUSTMENT. TIDIED ROOM. ICE WATER REFRESHED. NO OTHER CARE NEEDS AT THIS TIME.
--- NOTE | 2022-07-23 21:19 | NUR ---
V/S AND I&O'S TAKEN AND CHARTED. LEFT FOOT SCD OFF PER PATIENT STATED "DRIVES ME NUTS, I WANT TO GET SOME SLEEP". PRIMARY RN NOTIFIED. PATIENT REFUSED TO HAVE CORNEJO CARE. NO OTHER NEEDS AT THIS TIME.
--- NOTE | 2022-07-23 21:21 | NUR ---
PROVIDED FULL BODY ASSESSMENT PATIENT REPORTED FELLING PRETTY GOOD, COMPLAINS OF ACHE AROUND CORNEJO INSERTION SITE. REFUSED CORNEJO CARE AT THIS TIME FROM SLEEP SCIENTIST, PROVIDED PATIENT WITH SUPPLY TO CLEANSE SELF. ADMINISTERED FLOMAX PO, PROVIDED PATIENT WITH MEDICATION EDUCATION. ANSWERED QUESTIONS AND CONCERNS. NO OTHER NEEDS AT THIS TIME.
--- NOTE | 2022-07-24 00:51 | NUR ---
PATIENT RESTING SOUNDLY, APPEARS CALM. APPEARS TO HAVE NO NEEDS AT THIS TIME.
--- NOTE | 2022-07-24 01:47 | NUR ---
PATIENT APPEARS TO BE RESTING WITH EYES CLOSED. HOURLY ROUNDING.
--- NOTE | 2022-07-24 05:18 | NUR ---
PATIENT CALLED STATING " I AM READY FOR SURGERY" PATIENT THEN DISCUSSED HIS EXCITEMENT TO HAVE THE CORNEJO REMOVED TODAY. PROVIDED TENTATIVE POC WITH DR. HOLDER COMING IN TO ASSESS CORNEJO. PATIENT VERBALIZED UNDERSTANDING. ALSO STATES " I CAN FEEL SOMETHING SOLID MAKING ITS WAY THROUGH" PATIENT IS HOPING TO HAVE SOLID BOWEL MOVEMENT TODAY, DENIES NEED TO GET UP TO BR AT THIS TIME. ABDOMEN APPEARS SIGNIFICANTLY LESS DISTENDED. BOWEL TONES ACTIVE. ASSESSMENT DONE. NO OTHER NEEDS AT THIS TIME.
--- NOTE | 2022-07-24 10:16 | NUR ---
CORNEJO CATHETER REMOVED PER PROVIDER ORDER. CATHETER TIP INTACT UPON REMOVAL. PATIENT TOLERATED WELL. URINAL WITHIN REACH OF PATIENT. PT DUE TO VOID.
--- NOTE | 2022-07-24 11:40 | NUR ---
PATIENT TOOK A SHOWER. HE DID EVERYTHING ON HIS OWN. BUT OCCUPATIONAL THERAPY AND I WERE STANDING BY IN CASE HE NEEDED ANY HELP. CHANGED HER BED LINENS.
--- NOTE | 2022-07-24 11:55 | NUR ---
PATIENT WORKING WITH OT AT THIS TIME.
--- NOTE | 2022-07-24 13:00 | NUR ---
Spoke with Jesús. His NG is out and he is discussing wanting to go home. We again reviewed his needs. He cont. to plan on returning to his home. He denies any need for new DME, he has a , hospital bed, walker, cane at his home. His sister and son set up the hospital bed, son has attached a rope to his ceiling for pt to transfer from the bed to the . Pt states he did this for a year in the past with no problem. Family will grocery shop and cook for the pt. Pt states he has stopped drinking and smoking with this stay and plans on continue to not drink or smoke. He has the card for [facility], but does not want to speak with them. He states he knows what needs to be done to get sober and he will do it.
--- NOTE | 2022-07-24 16:25 | NUR ---
PT INCONTINENT OF MODERATE AMOUNT OF URINE. POST VOID BLADDER SCAN DONE AT THIS TIME; 218ML NOTED. PATIENT ENCOUARGE TO CONTINUE TO TRY TO VOID USING URINAL. NO CURRENT NEEDS.
--- NOTE | 2022-07-24 16:46 | NUR ---
ADMIN TYLENOL 650MG PO FOR 5/10 BACK PAIN.
--- NOTE | 2022-07-24 19:05 | NUR ---
SHIFT REPORT RECEIVED FROM DAYSHIFT AMISH CALHOUN AT BEDSIDE. pt AWAKE AND RESTING IN BED, ON RA. RR EVEN AND UNLABORED. pt REPORTS RECENTLY USING THE URINAL, LARGE AMOUNT URINE ONTO CHUCKS, [facility] PLACED NEW CHUCKS UNDER pt. BRACE NOTED TO LEFT LEG D/T FRACTURE PER REPORT, SCATTERED BRUISING NOTED.CALL LIGHT IN REACH.
--- NOTE | 2022-07-24 22:30 | NUR ---
ASSESSMENT COMPLETE, EVENING MEDS GIVEN ALONG WITH PRN TYLENOL FOR 10/10 PAIN IN LOWER BACK. pt USES URINAL TO VOID BUT SPILLED PART OF VOID AND WITH HELP FROM ROUGHING MILL OPERATOR BAILEY, pt BOOSTED IN BED AND NEW CHUCKS IN PLACE WITH [facility]UREEN CARE. BRACE REMAINS TO LLE, CMS INTACT. pt DENIES NUMBNESS AND TINGLING. NO ADDITIONAL NEEDS, CALL LIGHT IN REACH.
--- NOTE | 2022-07-24 23:56 | NUR ---
pt RESTING IN BED, ON RA. RR EVEN AND UNLABORED, NO DISTRESS NOTED. EYES CLOSED. CALL LIGHT IN REACH, pt APPEARS COMFORTABLE AND RELAXED AT THIS TIME.
--- NOTE | 2022-07-25 00:40 | NUR ---
CALL LIGHT ANSWERED, pt ASKING FOR HELP BACK TO BED. THIS RN AND DIRECTOR OF COUNSELING EAN BOTH IN ROOM. pt FOUNDON WHEELED SCOOTER CHAIR, pt REPORTED THAT HE HAD TO HAVE A BM AND VOID. UPON FURTHER EVALUATION BY NURSING STAFF IT WAS FOUND THAT pt GOT UP INDEPENDENTLY FROM BED TO WHEELED SCOOTER CHAIR AND WHEELED HIMSELF TO BATHROOM FOR BMA ND VOID AND THEN WHEELED HIMSELF INDEPENDENTLY BACK TO EDGE OF BED WHERE THE pt THEN DETERMINED HE REQUIRED ASSISTANCE BACK TO BED. pt EDUCATED IN LENGTH BY THIS RN ABOUT IMPORTANCE OF SAFE AMBULATION AND USE OF CALL LIGHT. pt A/OX4 AND HAS BEEN USING CALL LIGHT APPROPRIATELY THUS FAR IN THE SHIFT. pt INSTRUCTED TO USE CALL LIGHT BEFORE GETTING OUT OF BED SO HOSPITAL STAFF CAN SAFELY AMBULATE TO AND FROM BATHROOM, pt VERBALIZED UNDERSTANDING AND STATES, "YEAH, I WON'T BE GETTING UP BY MYSELF, YOU DON'T HAVE TO PUT THAT BUZZER ON ME". pt REFERRING TO BED ALARM. BED ALARM REMAINS TO ENSURE SAFETY, CALL LIGHT REMAINS IN REACH. WILL MONITOR.
--- NOTE | 2022-07-25 01:20 | NUR ---
ROUNDED ON pt, pt RESTING IN BED WITH EYES CLOSED. ON RA, RR EVEN AND UNLABORED. NO DISTRESS NOTED. CALL LIGHT IN REACH AND BED ALARM REMAINS ON FOR SAFETY.
--- NOTE | 2022-07-25 01:25 | NUR ---
PATIENT CALLED STATING " I NEED TO PEE". PATIENT USED THE URINAL LAYING ON HIS RIGHT SIDE. URINATED APPROXIMATELY 15ML. PATIENT STATED "STILL FEELS BURN". NO OTHER CARE NEEDS AT THIS TIME. BED ALARM REMAIN ON.
--- NOTE | 2022-07-25 02:00 | NUR ---
BED ALARM GOING OFF, THIS RN IN ROOM TO ASSIST. pt JUST BOOSTING SELF IN BED, ASSISTED WITH REPOSITIONING LLE, PILLOW REMAINS IN PLACE. ASSESSMENT COMPLETE, pt REPORTS TOLERABLE PAIN, RATES 3-4/10 AFTER GETTING TYLENOL EARLIER IN SHIFT. CMS REMAINS INTACT, STRONG BILATERAL PEDAL PULSES. SCD'S REMAIN IN PLACE, CALL LIGHT INR EACH AND BED ALARM REMAINS ON FOR SAFETY.
--- NOTE | 2022-07-25 02:28 | NUR ---
BED ALARMING. IN TO THE ROOM. PATIENT JUST ADJUSTING HIMSELF WITH THE TRAPEZE. EMPTIED URINAL. BED ALARM BACK ON. NO OTHER NEEDS AT THIS TIME.
--- NOTE | 2022-07-25 05:00 | NUR ---
VSS AND I&O'S COMPLETED. BED ALARM GOING OFF, pt REPOSITONING SELF IN BED. BED ALRM RESUMED, NO ADDITIONAL NEEDS, CALL LIGHT IN REACH. FRESH WATER PROVIDED.
--- NOTE | 2022-07-25 06:34 | NUR ---
ROUNDED ON pt, pt AWAKE AND WATCHING TV. BED ALARM ON AND CALL LIGHT IN REACH. NO NEEDS OR CONCERNS VERBALIZED BY pt, pt EAGER TO GO HOME.
--- NOTE | 2022-07-25 08:59 | NUR ---
RICH AND I GOT PATIENT UP TO USE THE BEDSIDE COMMODE AFTER HE BED ALARM WENT OFF ON SHIFT CHANGE. PATIENT IS SITTING UP IN HIS CHAIR FOR BREAKFAST.
--- NOTE | 2022-07-25 10:43 | NUR ---
WHEN I CAME IN TO DO HIS MORNING VITALS PATIENT WAS WAITING IN HIS CHAIR TO BE TRANFERED TO HIS BED. TWO PILLOWS UNDER HIS LEFT LEG. PATIENT IS NOW SLEEPING. BED ALARM ON. CHAIR ALARM IS ON THE CHAIR.
--- NOTE | 2022-07-25 12:05 | NUR ---
PATIENT WROKING WITH OT.
--- NOTE | 2022-07-25 13:00 | NUR ---
Met with pt and his family. Lengthy 45 minute conversation about dc and family refusing to take pt home and pt becomes upset and does finally agree to go to a SNF. He refuses to go to [facility] as he father there. He does agree to [facility] as he states he doesn't have any other choice as his family will not help him. Son, sister, and ex remind him they cannot get him in the home as he is [place] bound and there is 3-4 ft of snow at his home. Chart faxed to Kalyani at [facility].
--- NOTE | 2022-07-25 15:37 | NUR ---
PATIENT IN BED AT THIS TIME, NO DISTRESS. PATIENT REPORTS TOLERABLE PAIN AT THIS TIME. LLE BRACE IN PLACE, CMS INTACT. PATIENT HAS NO CURRENT NEEDS, CALL LIGHT WITHIN REACH.
--- NOTE | 2022-07-25 16:00 | NUR ---
Received a call from Kalyani at [facility]. They will accept this pt tomorrow and would like him there by 11:00. I will schedule the [facility] van as son had stated they would prefer this. Kalyani also asked I tell the pt and family they have had 2 case of the flu and a case of covid. Flu cases are off isolation, but the covid case is still on isolation. Called and updated the pt and the family. Pt states understanding. I let him know we will get a covid test and he will also be on isolation for a few states.
[2022-07-25] MEDS ORDERED: TAMSULOSIN HCL0.4 MG PO (16:10)
[2022-07-25] MEDS ORDERED: IPRAT-ALBUT 0.5-3 ML INH (16:10)
[2022-07-25] MEDS ORDERED: WARFARIN SODIUM5 MG PO ×2 (16:11)
[2022-07-25] MEDS ORDERED: NICOTINE1 EAC2 TD (16:11)
[2022-07-25] MEDS ORDERED: METOPROLOL SUCC25 MG PO (16:12)
[2022-07-25] MEDS ORDERED: TYLENOL325 MG PO (16:12)
[2022-07-25] MEDS ORDERED: KLOR-CON 1010 MEQ PO (16:12)
[2022-07-25] MEDS ORDERED: LIPITOR20 MG PO (16:12)
[2022-07-25] MEDS ORDERED: BUDESONIDE0.5 MG/2 M INH (16:13)
[2022-07-25] MEDS ORDERED: PANTOPRAZOLE SO40 MG PO (16:13)
--- NOTE | 2022-07-25 17:24 | NUR ---
Covid test ordered and RT notified.
--- NOTE | 2022-07-25 17:35 | NUR ---
both nares swabbed without complication. sample taken to lab.
--- NOTE | 2022-07-25 17:46 | NUR ---
REceived a call from Govind at the van. He confirms transport for this pt at 10:00 am tomorrow and will use our . SNF orders printed and placed on Dr. Mohr's desk.
--- NOTE | 2022-07-25 18:38 | NUR ---
PATIENT WAS WATCHING TV. NOW HE IS ASLEEP.
--- NOTE | 2022-07-25 19:10 | NUR ---
RECEIVED REPORT FROM [facility]. PT RESTING IN BED WATCHING TV AT THIS TIME. PT REPORTS NO NEEDS. CALL LIGHT WITHIN REACH.
--- NOTE | 2022-07-25 19:30 | NUR ---
IN PT ROOM FOR CORPORATE COMPLIANCE DIRECTOR, ASSESSMENT, VS, I/O'S. PT A&O X4. PT REPORTS NO PAIN, NAUSEA, N/T, SOB, DIZZINESS AT THIS TIME. LUNG SOUNDS ARE DIM IN BASES W/EXPIRATORY WHEEZES. PULSES FELT THROUGHOUT, ACTIVE BOWEL TONES X4. SKIN IS C/D/I, PT ABLE TO MOVE SELF IN BED. BRACE FOR LFT TIBIA FX. SALINE LOCKED, IV SITE WNL. SCD'S IN PLACE. URINAL AT BEDSIDE, EMPTIED 125 ML OUTPUT. VSS. ICE WATER PROVIDED. CALL LIGHT WITHIN REACH, NO FURTHER NEEDS AT THIS TIME.
--- NOTE | 2022-07-25 20:30 | NUR ---
IN PT ROOM ANSWERED CALL LIGHT. PT NEEDED ASSISTANCE CHANGING TO SIDE LYING POSITION. PILLOW IN BETWEEN LEGS. CALL LIGHT WITHIN REACH, NO FURTHER NEEDS AT THIS TIME.
--- NOTE | 2022-07-26 00:10 | NUR ---
PT RESTING W/EYES CLOSED. RESPIRATIONS ARE EVEN AND UNLABORED, NO SIGNS OF DISTRESS. CALL LIGHT WITHIN REACH.
--- NOTE | 2022-07-26 01:22 | NUR ---
PT RESTING W/EYES CLOSED. RESPIRATIONS ARE EVEN AND UNLABORED, NO SIGNS OF DISTRESS. PT APPEARS COMFORTABLE AT THIS TIME. CALL LIGHT WITHIN REACH.
--- NOTE | 2022-07-26 03:20 | NUR ---
PT RESTING IN BED W/EYES CLOSED. RESPIRATIONS ARE EVEN AND UNLABORED, NO SIGNS OF DISTRESS. CALL LIGHT WITHIN REACH.
--- NOTE | 2022-07-26 05:44 | NUR ---
IN PT ROOM FOR VS, I/O'S, AND ASSESSMENT. PT RESTING IN BED W/EYES CLOSED. AWAKENS TO VOICE. ASSISTED PT TO BEDSIDE COMMODE FOR BM, URINAL EMPTIED FOR 1100 OUTPUT. NO ACUTE CHANGES FROM PREVIOUS ASSESSMENT. VSS. PT ASSISTED FROM BEDSIDE COMMODE TO CHAIR, PILLOW UNDER LEG FOR ELEVATION. FRESH WATER PROVIDED. PT REPORTS NO FURTHER NEEDS AT THIS TIME. CALL LIGHT WITHIN REACH.
--- NOTE | 2022-07-26 07:20 | NUR ---
BEDSIDE HANDOFF REPORT RECEIVED FROM NURSING INFORMATICS SPECIALIST RN. PT SITTING IN CHAIR. PT DENIES NEEDS AT THIS TIME.
--- NOTE | 2022-07-26 07:30 | NUR ---
Orders, Pasrr, covid test,Polst faxed to Kalyani at [facility].
--- NOTE | 2022-07-26 08:45 | NUR ---
PT SITTING IN CHAIR, EATING BREAKFAST. PT ALERT AND ORIENTED. PT ON ROOM AIR, LUNG SOUNDS CLEAR WITH EXPIRATORY WHEEZE IN LEFT UPPER LOBE, DENIES SOB. BOWEL TONES ACTIVE, DENIES NAUSEA. CMS INTACT, PT WITH EDEMA IN LEFT LOWER LEG 1+. LEFT LEG WITH BRUISING AROUND KNEE, YELLOW/PURPLE. LEFT LEG IN KNEE IMMOBILIZER BRACE. DISCUSSED PLAN OF CARE FOR THE DAY, PT TO BE DISCHARGED APPROXIMATELY AT 1000 TO [facility]. PT DENIES OTHER NEEDS AT THIS TIME.
--- NOTE | 2022-07-26 10:40 | NUR ---
REPORT CALLED TO [facility], SPOKE WITH DAVI BEYER.
== END 2022-07-26 09:55 | disposition home or self-care (01) | DRG 393 ==
LOC: ED 14:46 → MS 16:36 → CCU 16:36 → MS 07-12 16:25 → CCU 07-15 22:02 → MS 07-18 14:20
PROVIDERS: ADMIT Internal Medicine; ATTEND Internal Medicine
PROC: 30233N1 Transfusion of Nonautologous Red Blood Cells into Peripheral Vein, Percutaneous Approach (ICD-10-PCS; principal; 2022-07-10)
PROC: 0DB68ZX Excision of Stomach, Via Natural or Artificial Opening Endoscopic, Diagnostic (ICD-10-PCS; 2022-07-11)
PROC: 0DB98ZX Excision of Duodenum, Via Natural or Artificial Opening Endoscopic, Diagnostic (ICD-10-PCS; 2022-07-11)
PROC: 0DBH8ZX Excision of Cecum, Via Natural or Artificial Opening Endoscopic, Diagnostic (ICD-10-PCS; 2022-07-12)
DX: K63.3 Ulcer of intestine (principal); G93.41 Metabolic encephalopathy; S82.192A Other fracture of upper end of left tibia, initial encounter for closed fracture; D62 Acute posthemorrhagic anemia; M87.851 Other osteonecrosis, right femur; K56.7 Ileus, unspecified; K29.80 Duodenitis without bleeding; K29.30 Chronic superficial gastritis without bleeding; K63.5 Polyp of colon; Z20.822 Contact with and (suspected) exposure to COVID-19; I10 Essential (primary) hypertension; F10.20 Alcohol dependence, uncomplicated; Z86.711 Personal history of pulmonary embolism; Z86.718 Personal history of other venous thrombosis and embolism; Z88.0 Allergy status to penicillin; W18.39XA Other fall on same level, initial encounter
CPT/HCPCS: 00731; 00811; 36415; 71045; 74018; 74019; 74177; 74250; 80048; 80053; 83605; 83735; 84100; 85025; 85610; 86850; 86900; 86901; 86922; 87040; 87070; 87075; 87088; 87205; 87493; 88305; 93005; 93010; 93971; 94640; 94667; 94668; 94760; 97110; 97162; 97166; 97530; 97535; 99406; A9270; C9113; C9803; G0480; J0131; J0696; J0780; J1170; J1200; J1885; J1940; J2270; J2405; J2704; J2765; J3411; J3430; J3475; J3480; J7030; J7060; J7120; J7121; J7168; P9016; Q9967; U0003